=== PATIENT | male | born 1940 | race Caucasian/White ===

== ENCOUNTER → 2017-10-18 | Outpatient (CLI) | payer OTHER ==
[~2017-10-18] MED LIST: ALBUTEROL0.09 MG/A1 INH; ANTIVERT/2525 MG PO; BUPROPION HCL150 MG PO; DAYPRO600 M1 PO; DELTASONE5 MG; FLOMAX0.4 MG PO; LOPRESSOR25 MG PO; LORATADINE10 MG PO; MECLIZINE HCL25 M2 PO; PRAVACHOL10 MG PO; PRAVACHOL80 MG PO; SINGULAIR10 MG; SINGULAIR10 MG PO; TAMSULOSIN HYD0.4 MG PO; TESTOSTERONE IM; VICODIN 5/500 505 MG PO; VICODIN 500 MG-1 TAB PO; VITAMIN D50000 I3 PO; WELLBUTRIN XL150 MG PO; ZITHROMAX250 MG PO
== END | disposition home or self-care (01) ==
LOC: MRI 07:44
DX: M48.061 Spinal stenosis, lumbar region without neurogenic claudication (principal); M51.26 Other intervertebral disc displacement, lumbar region

== ENCOUNTER → 2019-01-21 | Outpatient (CLI) | payer OTHER ==
[~2019-01-21] MED LIST changes: +BUPROPION XL300 MG PO; +DONEPEZIL HYDROC5 M1 PO; +TESTOSTERO200 MG/1 M IM; +TRAZODONE50 MG PO
== END | disposition home or self-care (01) ==
LOC: RAD 09:28
DX: M19.011 Primary osteoarthritis, right shoulder (principal)

== ENCOUNTER 2019-06-29 16:33 | Inpatient (IN) | payer OTHER ==
[~2019-06-29] VITALS: Ht 185.4 cm; Wt 92.5 kg
[2019-06-29 16:42] VITALS: BP 172/76
[2019-06-29 17:31] LABS: BASO % 0.6 % (0.0-1.0); EOS # 0.3 10*3/uL (0.0-0.4); EOS % 3.8 % (1.0-4.0); HEMATOCRIT 45.3 % (42.0-52.0); HEMOGLOBIN 14.1 g/dl (14.0-18.0); LYMPH # 0.8 10*3/uL (1.3-4.4); LYMPH % 11.5 % (27.0-41.0); MEAN CELL VOLUME 93.4 fl (80.0-94.0); MEAN CORPUSCULAR HGB 29.1 pg (27.0-31.0); MEAN CORPUSCULAR HGB CONC 31.1 g/dl (33.0-37.0); MEAN PLATELET VOLUME 9.1 fl (9.6-12.3); MONO # 0.5 10*3/uL (0.1-1.0); MONO % 7.2 % (3.0-9.0); NEUT # 5.2 10*3/uL (2.3-7.9); NEUT % 76.5 % (47.0-73.0); PLATELET COUNT AUTOMATED 163 10*3/uL (130-400); RED BLOOD COUNT 4.85 10*6/uL (4.50-5.90); RED CELL DISTRI WIDTH 12.9 % (0-14.5); WHITE BLOOD COUNT 6.8 10*3/uL (4.8-10.8)
[2019-06-29 17:42] LABS: ACT PARTIAL THROMBO TIME 28.6 SECONDS (20.0-32.1)
[2019-06-29 17:47] LABS: ALBUMIN 3.2 gm/dl (3.1-4.5); ALKALINE PHOSPHATASE 81 U/L (45-117); BUN 16 mg/dl (7-24); CHLORIDE 100 mmol/L (98-107); CREATININE 1.49 mg/dL (0.70-1.30); POTASSIUM 4.4 mmol/L (3.5-5.1); SGOT/AST 12 IU/L (3-35); SGPT/ALT 19 U/L (12-78); SODIUM 137 mmol/L (136-145); TOTAL PROTEIN 8.1 gm/dL (6.4-8.2)
[2019-06-29 17:48] LABS: TROPONIN I < 0.015 ng/ml (<0.045)
[2019-06-29 18:00] VITALS: BP 170/74
[2019-06-29 19:20] VITALS: BP 164/78
[2019-06-29 20:38] VITALS: BP 172/76
[2019-06-29 21:27] LABS: BILIRUBIN NEGATIVE (NEGATIVE); CLARITY CLOUDY (CLEAR); COLOR RED (YELLOW); GLUCOSE NEGATIVE (NEGATIVE); KETONE NEGATIVE (NEGATIVE)
[2019-06-29 21:28] LABS: BLOOD 3+ (NEGATIVE); LEUKO ESTERASE TRACE (NEGATIVE); NITRITE NEGATIVE (NEGATIVE); SPECIFIC GRAVITY 1.015 (1.005-1.030); UROBILINOGEN 0.2 E.U./dl (0.2-1.0)
[2019-06-29 21:38] LABS: BACTERIA 2+; RBC TNTC rbc/hpf (0-2)
[2019-06-29 22:40] VITALS: BP 168/72
--- NOTE | 2019-06-29 22:40 | NUR ---
A 78, admitted to 5E, under the services of PRATIMA Sherwood DO with a diagnosis of UTI ALTERED MENTAL STATUS. Chief complaint is WEAKNESS. Patient arrived via stretcher from ER. Monitor applied. Initial assessment completed. Vital signs taken and recorded. RESIDENTS notified of admission to the unit. Orders received. See assessment for past medical history, medications and allergies. Patient and/or family oriented to unit. [address] visitation policy reviewed. Clothing/patient valuable form completed. TYESHA MELLO
--- NOTE | 2019-06-29 22:47 | NUR ---
TYLENOL GIVEN FOR TEMPERATURE OF 102.2 F ORAL. WILL ASSESS EFFECTIVENESS.
--- NOTE | 2019-06-29 23:14 | NUR ---
DR NG NOTIFIED OF PATIENT TEMPERATURE. HE GAVE ORDERS FOR 2 NSS FLUID BOLUS'S. FIRST BAG CURRENTLY RUNNING.
--- NOTE | 2019-06-29 23:16 | NUR ---
PATIENT UNABLE TO STATE HOME MEDICATIONS. PATIENT ALSO DOES NOT HAVE A LIST.
--- NOTE | 2019-06-29 23:19 | NUR ---
PATIENT DOES NOT REMEMBER VACCINE HISTORY.
--- NOTE | 2019-06-30 00:12 | NUR ---
NOTIFIED DR GN THAT PATIENT'S TEMPERATURE IS NOW 100.5 F ORAL. ALSO NOTIFIED HIM THAT THE PATIENT IS UNABLE TO VERIFY HOME MEDICATIONS AND NOTHING RECENT IS LISTED IN MEDICATION CLAIM HISTORY. DR NG REQUESTED THAT I CALL THE PATIENT'S TO GET LIST OF MEDICATIONS. DR NG STATED THAT IF THE DID NOT ANSWER BECAUSE IT IS AFTER MIDNIGHT TO MAKE SURE WE GET AHOLD OF PATIENT'S TOMORROW MORNING TO GET LIST OF HOME MEDICATIONS. WILL CALL PATIENT'S .
--- NOTE | 2019-06-30 00:40 | NUR ---
NOT ABLE TO CONTACT PATIENT'S AT THIS TIME. WILL LET [facility] KNOW THAT THE NEEDS CONTACTED FOR HOME MEDICATIONS PER DR NG.
[2019-06-30 01:56] VITALS: BP 130/54
--- NOTE | 2019-06-30 01:57 | NUR ---
BOLUS PER SEPSIS PROTOCOL FINISHED. DOCUMENTED IN SEPSIS REASSESSMENT CHARTING. VITAL SIGNS TAKEN AND RECORDED. TEMPERATURE COMING DOWN NOW 99.1 F ORAL. PATIENT UP AND TALKING. CALL LIGHT WITHIN REACH. WILL CONTINUE TO MONITOR.
[2019-06-30 06:48] LABS: ALBUMIN 2.5 gm/dl (3.1-4.5); BUN 15 mg/dl (7-24); CHLORIDE 107 mmol/L (98-107); CHOLESTEROL 111 mg/dL (<200); CREATININE 1.26 mg/dL (0.70-1.30); PHOSPHOROUS 3.5 mg/dL (2.5-4.9); POTASSIUM 4.1 mmol/L (3.5-5.1); SGOT/AST 13 IU/L (3-35); SGPT/ALT 14 U/L (12-78); SODIUM 140 mmol/L (136-145); TOTAL PROTEIN 6.5 gm/dL (6.4-8.2); TRIGLYCERIDES 90 mg/dl (<150); VLDL CHOLESTEROL 18 mg/dL (6-40)
[2019-06-30 06:54] LABS: ALKALINE PHOSPHATASE 65 U/L (45-117); FREE T4 0.99 ng/dl (0.76-1.46); HDL CHOLESTEROL 40 mg/dl (40-60); LDL CHOLESTEROL 53 mg/dL (9-159); THYROID STIM HORMONE (HS) 0.575 uIU/ml (0.358-4.75)
[2019-06-30 07:39] LABS: BASO % 0.4 % (0.0-1.0); EOS # 0.1 10*3/uL (0.0-0.4); EOS % 2.7 % (1.0-4.0); HEMATOCRIT 42.5 % (42.0-52.0); HEMOGLOBIN 13.6 g/dl (14.0-18.0); LYMPH # 0.8 10*3/uL (1.3-4.4); LYMPH % 17.3 % (27.0-41.0); MEAN CELL VOLUME 93.8 fl (80.0-94.0); MEAN PLATELET VOLUME 10.1 fl (9.6-12.3); MONO # 0.6 10*3/uL (0.1-1.0); MONO % 13.3 % (3.0-9.0); NEUT # 3.1 10*3/uL (2.3-7.9); NEUT % 66.1 % (47.0-73.0); PLATELET COUNT AUTOMATED 128 10*3/uL (130-400); RED BLOOD COUNT 4.53 10*6/uL (4.50-5.90); RED CELL DISTRI WIDTH 13.2 % (0-14.5); WHITE BLOOD COUNT 4.7 10*3/uL (4.8-10.8)
[2019-06-30 08:00] VITALS: BP 153/57
--- NOTE | 2019-06-30 10:30 | NUR ---
Van Driver Helper in to talk to patient. Patient states lives at home with his . There are 18 steps in the home. There is a stair lift. Physician: [facility] Pharmacy: [facility]: [facility] is working on getting him home health services but it is currently on hold due to his hospital admission, would like [facility] on discharge Patient's level of ADLs: minimal assistance Patient has working utilities: yes DME: walker, cane, rollator Follow-up physician's appointment after d/c: will be made by the hospitalist nurse director upon discharge Does patient want to access PORTAL?: no Discharge plan discussed with patient and his who is at his bedside. He lives at home with his . He needs minimal assistance with his ADLs and ambulates with either a walker, cane, or rollator. states MA is working on getting a patient a hospital bed and fix the stair lift but that could take 3-4 weeks. would like to see how he does with therapy to see discharge planning needs. Discussed short term SNF and they are agreeable. When provided with a list of facilities they chose [facility]. Discussed home health care services and MA is currently working on setting up home health care services but it is currently on hold due to his admission to the hospital. Discussed home health care services and they are agreeable. When provided with a list of agencies they chose [facility]. If patient was to be discharged to home the would provide transportation and the grandson would help get the patient into their home. DOUGLAS WHITT
--- NOTE | 2019-06-30 11:25 | NUR ---
PATIENT GIVEN TYLENOL FOR ELVATED TEMP. PATIENT DENIES ANY CHILLS OR DISCOMFORT WILL CONTINUE TO MONITOR AND REASSESS. CALL LIGHT WITHIN REACH.
--- NOTE | 2019-06-30 11:50 | NUR ---
[phone].
[2019-06-30 12:00] VITALS: BP 103/53
[2019-06-30 14:00] VITALS: BP 103/53
--- NOTE | 2019-06-30 14:40 | NUR ---
Occupational therapy orders received and OT evaluation completed in full on floor five. Patient precautions include fall risk, ww use, R UE IV line, weakness, heart monitor, and bed/chair alarm. Per OT eval, OT recommends patient d/c to a SNF. If refused, home with HH SN, OT, and PT. Patient would benefit from continued OT treatment to maximize safety and independence with ADLs, mobility, and [place]. [place], [address]. Thank you for the referral. Kaykay Smith, OTR/L
--- NOTE | 2019-06-30 14:45 | NUR ---
PATIENT TAKEN DOWN TO 406-1 VIA WHEELCHAIR. REPORT GIVEN TO DONNIE DOOLEY.
--- NOTE | 2019-06-30 14:55 | NUR ---
PT TO THE 4TH FLOOR AT THIS TIME. RECEIVED REPORT FROM NURSE PALLAVI RN.
--- NOTE | 2019-06-30 15:05 | NUR ---
PT RESTING IN CHAIR. ASSESSMENT COMPLETE. RESPIRATIONS EASY AND REGULAR. PT STATES HE IS CONSTANTLY IN PAIN. NO OTHER COMPLAINTS. DENIES THE NEED FOR ANYTHING AT THIS TIME. CALL LIGHT WITHIN REACH. WILL CONTINUE TO MONITOR.
[2019-06-30 16:00] VITALS: BP 119/63
--- NOTE | 2019-06-30 16:21 | NUR ---
PER NURSE PALLAVI RN WAS IN AND WAS SUPPOSED TO BRING BACK A MED LIST AND NEVER DID. I TRIED TO CONTACT THE FOR A MED LIST AND GOT NO ANSWER. WILL TRY AGAIN.
--- NOTE | 2019-06-30 17:03 | NUR ---
PT STATES TO TRY [facility] FOR A MED LIST. [facility] STATES HE HASN'T GOT ANYTHING FILLED THERE SINCE 2014. I ASKED HIM IF [facility] USES THE [facility] AND HE SAYS "YES I THINK SO" [facility]READ[facility] CL[facility]ED AT THIS TIME.
--- NOTE | 2019-06-30 17:57 | NUR ---
BROUGHT MED LIST IN. AT BEDSIDE. PT RESTING. RESPIRATIONS EASY AND REGULAR. NO COMPLAINTS. WILL MONITOR
[2019-06-30] MEDS ORDERED: DONEPEZIL HCL10 MG PO (18:31)
[2019-06-30] MEDS ORDERED: TRAZODONE100 MG PO (18:34)
[2019-06-30] MEDS ORDERED: ALLERGY EYE DRO10 M1 OP (18:37)
[2019-06-30] MEDS ORDERED: VITAMIN D350 MC1 PO (18:40)
--- NOTE | 2019-06-30 18:45 | NUR ---
NOTIFIED PTS MED REC IS UP TO DATE.
--- NOTE | 2019-06-30 19:00 | NUR ---
ASSUMED CARE OF PT. ASSESSMENT COMPLETED. PT REQUESTED MOVE FROM BED TO CHAIR, PT POSITIONED ON BACK. NO COMPLAINTS OF PAIN/DISCOMFORT AT THIS TIME. VS WITHIN NORMAL LIMITS.
[2019-06-30 20:00] VITALS: BP 111/86
--- NOTE | 2019-06-30 22:00 | NUR ---
NORCO FOR PAIN 3/10 IN RIGHT SHOULDER EFFECTIVE. PT RESTING QUIETLY.
[2019-07-01] VITALS: BP 123/47
--- NOTE | 2019-07-01 | NUR ---
PT HAD A TEMPERATURE OF 101.2. PT WAS GIVEN TYLENOL 650MG
--- NOTE | 2019-07-01 03:28 | NUR ---
RETAKE OF TEMP. 98.8. TYLENOL EFFECTIVE
[2019-07-01 08:00] VITALS: BP 123/52
--- NOTE | 2019-07-01 13:48 | NUR ---
OT Daily Note Patient was seen this date for 20 minutes of 1:1 OT. Pt identified by name and date. Pt reports pain 9/10 in his back. Pt was seated in bed side chair with his present. ESCOBAR educated patient on use of sock aid secondary to patient being max assist to don socks. Pt provided visual demonstration for technique. Pt required Min A using sock aid to don R sock and verbal cues to don L. Patient performed STS from chair with arms at [facility] for balance. Transfer from bed side chair to w/c at Mod CHEMISTRY QUALITY CONTROL ANALYST for balance with max verbal cues for body positioning when turning to desend to seated surface. Verbal cues for hand placement on w/c for safety. Pt requires max vc during tasks for technique. Nursing arrived at this time to take patient to testing. Total treatment time: 20 minutes
[2019-07-01 16:00] VITALS: BP 146/59
--- NOTE | 2019-07-01 19:00 | NUR ---
REPORT RECEIVED FROM VIOLETTA DOOLEY. PT SITTING IN CHAIR AT THIS TIME. NO COMPLAINTS VOICED, CALL LIGHT IN REACH.
[2019-07-01 20:00] VITALS: BP 150/74
--- NOTE | 2019-07-01 21:00 | NUR ---
TYLENOL GIVEN PER ORDER FOR TEMP 100.8. WILL MONITOR EFFECTIVENESS.
--- NOTE | 2019-07-01 23:45 | NUR ---
TYLENOL INEFFECTIVE. PT [id number]. WILL CALL FOR ORDERS,
[2019-07-02] VITALS: BP 127/55
--- NOTE | 2019-07-02 01:34 | NUR ---
MOTRIN AND TYLENOL GIVEN PER DR. NG FOR TEMP OF 100.9 WILL MONITOR EFFECTIVENESS.
--- NOTE | 2019-07-02 03:00 | NUR ---
TYLENOL EFFECTIVE FOR TEMPERATURE. PT TEMP NOW 98.6 ORALLY. NO COMPLAINTS VOICED AT THIS TIME. CALL LIGHT IN REACH
[2019-07-02 06:57] LABS: BASO % 0.6 % (0.0-1.0); EOS # 0.1 10*3/uL (0.0-0.4); EOS % 1.6 % (1.0-4.0); HEMATOCRIT 37.3 % (42.0-52.0); LYMPH # 0.8 10*3/uL (1.3-4.4); LYMPH % 25.5 % (27.0-41.0); MEAN CELL VOLUME 92.1 fl (80.0-94.0); MEAN CORPUSCULAR HGB 29.6 pg (27.0-31.0); MEAN CORPUSCULAR HGB CONC 32.2 g/dl (33.0-37.0); MEAN PLATELET VOLUME 9.6 fl (9.6-12.3); MONO # 0.3 10*3/uL (0.1-1.0); MONO % 8.9 % (3.0-9.0); NEUT % 63.1 % (47.0-73.0); PLATELET COUNT AUTOMATED 108 10*3/uL (130-400); RED BLOOD COUNT 4.05 10*6/uL (4.50-5.90); WHITE BLOOD COUNT 3.1 10*3/uL (4.8-10.8)
[2019-07-02 08:00] VITALS: BP 131/52
--- NOTE | 2019-07-02 09:00 | NUR ---
Document Control Associate in to see patient. No new needs or request at this time. When medically stable, accepted, and precert is received he will be discharged to [facility]. service planner following.
--- NOTE | 2019-07-02 09:49 | NUR ---
OT NOTE PATIENT COMPLETED 25 MINUTUES OT THIS DATE. PATIENT IDENTIFIED BY NAME AND DATE OF . COMPLETED SIT TO STAND FROM BED CGA. COMPLETEED FUNCTIONAL AMBULATION USE FWW TO BATHROOM CGA COMPLETING STAND TO SIT TOILET CGA MIN VERBAL CUES SAFETY PROPER HAND PLACEMENT GRAB BAR. PATIENT COMPLETED UB DRESSING GOWN MIN A. COMPLETED LB DRESSING USE AE MIN A. COMPLETED SIT TO STAND FROM TOILET USE GRAB BAR MIN A COMPLETING FUNCTIONAL AMBULATION USE FWW TO BED CGA. PATIENT COMPLETED SIT TO SUPINE BED CGA. PATIENT IN BED WITH CALL LIGHT WITHIN REACH AND BAD ALARM IN TACT. PATIENT FAMILY MEMBER PRESENT. ARUN MANNING
[2019-07-02 12:00] VITALS: BP 137/64
--- NOTE | 2019-07-02 13:03 | NUR ---
PHYSICAL THERAPY Carla completed full report to follow moderate level of complexity 38862 recomend SNF at discharge. PT to work on tranfers,balance,strength and ambulation Beverly Barboza PT
--- NOTE | 2019-07-02 13:37 | NUR ---
Orders received from Dr. Vasquez for SNF Placement. Pt. requests [facility]. Referral Faxed to [facility] Attn: Le. Pt. will require [facility] Precert Prior to discharge when Medically Stable.
[2019-07-02 16:00] VITALS: BP 149/62
--- NOTE | 2019-07-02 17:45 | NUR ---
Spoke with regarding patients temperature, stat blood cultures not drawn because hospital does not have internet service and urine not collected as of yet due to incontinence. Called ER for an urine collection bag, applied, awaiting sample.
--- NOTE | 2019-07-02 17:52 | NUR ---
Left a message with answering service regarding consult for UTI, continue fevers.
--- NOTE | 2019-07-02 19:11 | NUR ---
returned call regarding consult. Patients history, meds and tests were reviewed. See new orders. Physician also stated if patient spikes another temperature to order blood cultures x2.
[2019-07-02 20:00] VITALS: BP 139/51
--- NOTE | 2019-07-02 20:00 | NUR ---
TYMPANIC TEMP OF 99.4 TAKEN AT THIS TIME. PATIENT STATES HE DOESN'T FEEL HAS "HOT" BEFORE.
[2019-07-02 20:48] LABS: BILIRUBIN NEGATIVE (NEGATIVE); BLOOD 1+ (NEGATIVE); CLARITY CLEAR (CLEAR); COLOR YELLOW (YELLOW); GLUCOSE NEGATIVE (NEGATIVE); KETONE NEGATIVE (NEGATIVE); LEUKO ESTERASE NEGATIVE (NEGATIVE); NITRITE NEGATIVE (NEGATIVE); SPECIFIC GRAVITY 1.015 (1.005-1.030); UROBILINOGEN 0.2 E.U./dl (0.2-1.0)
[2019-07-02 20:50] LABS: BACTERIA TRACE
[2019-07-03] VITALS: BP 115/94
--- NOTE | 2019-07-03 03:46 | NUR ---
24 HR chart check completed.
[2019-07-03 06:19] LABS: BASO % 0.3 % (0.0-1.0); EOS # 0.1 10*3/uL (0.0-0.4); EOS % 1.7 % (1.0-4.0); HEMATOCRIT 36.8 % (42.0-52.0); HEMOGLOBIN 11.7 g/dl (14.0-18.0); MEAN CELL VOLUME 92.7 fl (80.0-94.0); MEAN CORPUSCULAR HGB 29.5 pg (27.0-31.0); MEAN CORPUSCULAR HGB CONC 31.8 g/dl (33.0-37.0); MEAN PLATELET VOLUME 9.7 fl (9.6-12.3); MONO # 0.3 10*3/uL (0.1-1.0); NEUT # 2.2 10*3/uL (2.3-7.9); NEUT % 61.7 % (47.0-73.0); PLATELET COUNT AUTOMATED 115 10*3/uL (130-400); RED BLOOD COUNT 3.97 10*6/uL (4.50-5.90); RED CELL DISTRI WIDTH 13.1 % (0-14.5); WHITE BLOOD COUNT 3.5 10*3/uL (4.8-10.8)
[2019-07-03 06:24] LABS: CREATININE 1.4 mg/dL (0.70-1.30)
--- NOTE | 2019-07-03 06:41 | NUR ---
MADE AWARE THAT PATIENT IS REQUESTING TUMS AT THIS TIME. DR STATED HE WILL ORDER SOMETHING.
[2019-07-03 08:00] VITALS: BP 144/72
--- NOTE | 2019-07-03 08:30 | NUR ---
Route Rider in to see patient. No new needs or request at this time. When medically stable and precert is received he will be discharged to [facility]. financial planner following.
--- NOTE | 2019-07-03 08:36 | NUR ---
Iv rate reduced to 80 cc/hr per order.
--- NOTE | 2019-07-03 09:55 | NUR ---
OT NOTE PATIENT SEEN OT THIS DATE 23 MINUTES. PATIENT IN BED UPON ARRIVAL. PATIENT COMPLETED SUPINE TO SIT EOB AND REORTS FATIGUE WITH MODERATE REST BREAKS REQUIRED. COMPLETED UB DRESSING MIN A GOWN AND LB DRESSING DOFF/ROBERT DEPENDS MOD A WITH INCONTINENCE BLADDER. OBSERVED DRIED DARK BLOOD IN PATIENT'S DEPENDS WITH NURSING NOTIFIED. PATIENT COMPLETED STAND PIVOT TRANSFER CGA TO RECLINER. PATIENT COMPLETED DYNAMIC STAND BALANCE USE FWW SUPPORT APPROX STAND TOLERANCE 1-2 MINUTES WITH MAX FATIGUE AND NEED SEATED REST BREAK FOR INCREASE STAND TOLERANCE DURING ADL TASKS. PATIENT SEATED IN RECLINER END OF SESSION WITH CALL LIGHT AND CHAIR ALARM INTACT. CONTINUE TOWARDS PLAN OF CARE. ARUN ESCOBAR/Beth
--- NOTE | 2019-07-03 10:09 | NUR ---
PHYSICAL THERAPY Patient seen this am 1:1 for therapy visit and was resting supine in bed upon therapist arrival. Patient identified by name / and reports feeling increased generalized, global weakness. Paient transfers supine to sit EOB with MOD A x 1 and needed a minute or so to collect himself. Patient performed sit to stand transfer MIN A and ambulated with use of wh walker, CGA/MIN, 30'x 1, demonstrating very slow, cautious gait pattern with decreased stride. Patient c/o of feeling a bit light headed and returned to bedside chair with mild fatigue. Patient stated he felt better after a brief seated rest with no dizziness and remained in bedside chair with call light, tray table, telephone and body alarm for safety. Will continue per POC as tolerated, total treatment time 16 minutes. Venkat Sherman, CREDIT UNION MANAGER
--- NOTE | 2019-07-03 11:06 | NUR ---
Patient updated clinicals faxed to [facility] for precert, waiting for auth.
[2019-07-03 12:00] VITALS: BP 153/60
--- NOTE | 2019-07-03 12:32 | NUR ---
Updated clinicals and med list faxed to [facility] due to new IV ATB change, waiting on review and precert
--- NOTE | 2019-07-03 13:51 | NUR ---
Patient is being accepted to [facility] and precert has been started. waiting on auth.
[2019-07-03 16:00] VITALS: BP 143/64
--- NOTE | 2019-07-03 16:32 | NUR ---
OCCUPATIONAL THERAPY CO-SIGN I approve of the Occupational Therapy notes written above. ELMA FONG OTR/Beth
--- NOTE | 2019-07-03 16:33 | NUR ---
PHYSICAL THERAPY CO-SIGN I approve of the Physical Therapy notes written above. Beverly Barboza PT
--- NOTE | 2019-07-03 17:19 | NUR ---
Le sr. social media & mobile manager from [facility] called and states she received authorization for pt from insurance. States ok to come there at dc. States if he is DC over the weekend he is good to come.
[2019-07-03 20:00] VITALS: BP 144/65
--- NOTE | 2019-07-03 21:29 | NUR ---
MADE AWARE THAT PATIENT TAKES 0.8MG OF FLOMAX AT NIGHT AND WAS ORIGINALLY CONTINUED BUT LOOKS LIKE IT WAS NOT PROCESSED CORRECTLY WHEN CONTINUED OVER AND ONLY 0.4MG WAS ORDER. STATED TO KEEP ORDER THE WAY IT IS FOR NOW WHILE PATIENT HAS IVF RUNNING
--- NOTE | 2019-07-03 21:48 | NUR ---
MADE AWARE THAT PATIENT HAS BEEN HAVING INDIGESTION FOR A COUPLE DAYS AND REQUESTING ANTIACID. SATED OK TO PLACE X1 ORDER OF TUMS AT THIS TIME.
--- NOTE | 2019-07-03 23:23 | NUR ---
PATIENT MEDICATED WITH TYLENOL AND MOTRIN FOR TEMP 100.7. WILL CONTINUE TO MONITOR
[2019-07-04] VITALS: BP 153/68
--- NOTE | 2019-07-04 04:00 | NUR ---
TYLENOL AND MOTRIN EFFECTIVE. PATIENTS TEMP SS NOW 97.7 TYMPANIC
--- NOTE | 2019-07-04 04:41 | NUR ---
MADE AWARE THAT PATIENTS URINE HAS BEEN BASSAM IN COLOR BUT AT THIS TIME, PATIENT PRODUCE BLOOD CLOT ABOUT 8CM IN LENGTH AND LOOKED WORM LIKE, NOTED THAT ER ATTEMPED TO STRAIGHT CATH PATIENT UNSUCCESSFULLY. PATIENT HOWEVER HAS NO COMPLAINTS OF PAIN AND IS VOIDING FINE. STATED OK, JUST TO MONITOR IF IT GETS WORSE.
--- NOTE | 2019-07-04 05:02 | NUR ---
24 HR chart check completed.
[2019-07-04 07:22] LABS: HEMATOCRIT 36.4 % (42.0-52.0); HEMOGLOBIN 11.5 g/dl (14.0-18.0); MEAN CELL VOLUME 93.3 fl (80.0-94.0); MEAN CORPUSCULAR HGB 29.5 pg (27.0-31.0); MEAN CORPUSCULAR HGB CONC 31.6 g/dl (33.0-37.0); MEAN PLATELET VOLUME 9.5 fl (9.6-12.3); PLATELET COUNT AUTOMATED 119 10*3/uL (130-400); RED CELL DISTRI WIDTH 13.2 % (0-14.5); WHITE BLOOD COUNT 4.3 10*3/uL (4.8-10.8)
[2019-07-04 08:00] VITALS: BP 150/61
[2019-07-04 08:20] LABS: PLATELET SUFFICIENCY LOW (NORMAL); TOTAL CELLS COUNTED 100 #CELLS
[2019-07-04 12:00] VITALS: BP 154/70
[2019-07-04 16:00] VITALS: BP 169/89
--- NOTE | 2019-07-04 18:19 | NUR ---
DR. ENDY HUGHES.
--- NOTE | 2019-07-04 18:23 | NUR ---
DR. SCHUMACHER AWARE OF CXR RESULTS, NO CHANGE.
[2019-07-04 20:00] VITALS: BP 148/66
--- NOTE | 2019-07-04 21:31 | NUR ---
PATIENT MEDICATED WITH MOTRIN FOR LOW GRADE TEMP OF 100.4. PATIENT ALSO MEDICATED WITH RESTORIL AND TESSALON FOR INSOMNIA AND COUGH. WILL MONITOR
--- NOTE | 2019-07-04 22:13 | NUR ---
RESTORIL AND TESSALON PERLE EFFECTIVE.
--- NOTE | 2019-07-04 23:28 | NUR ---
MADE AWARE THAT PATIENT'S SPO2 WAS IN THE 80'S ON RA, HAS BEEN ON LOWER 90'S TODAY. PLACED ON 2L NC AND SATING AT 97%. STATED OK.
[2019-07-05] VITALS (7 sets, daily range): BP systolic 124–177; BP diastolic 54–80
--- NOTE | 2019-07-05 | NUR ---
TYLENOL EFFECTIVE. TEMP AT 99.0
[2019-07-05 07:32] LABS: HEMATOCRIT 36.4 % (42.0-52.0); HEMOGLOBIN 11.6 g/dl (14.0-18.0); MEAN CELL VOLUME 93.6 fl (80.0-94.0); MEAN CORPUSCULAR HGB 29.8 pg (27.0-31.0); MEAN CORPUSCULAR HGB CONC 31.9 g/dl (33.0-37.0); MEAN PLATELET VOLUME 9.5 fl (9.6-12.3); PLATELET COUNT AUTOMATED 148 10*3/uL (130-400); RED BLOOD COUNT 3.89 10*6/uL (4.50-5.90); RED CELL DISTRI WIDTH 13.3 % (0-14.5); WHITE BLOOD COUNT 5.9 10*3/uL (4.8-10.8)
[2019-07-05 07:50] LABS: BUN 16 mg/dl (7-24); CHLORIDE 108 mmol/L (98-107); SODIUM 144 mmol/L (136-145)
[2019-07-05 08:05] LABS: PLATELET SUFFICIENCY NORMAL (NORMAL); TOTAL CELLS COUNTED 100 #CELLS
--- NOTE | 2019-07-05 10:43 | NUR ---
NOOTIFIED OF BP 164/70 MANUAL AFTER GIVING SCHEDULED LOPRESSOR. SAID SHE WOULD LOOK AT HIS CHART.
--- NOTE | 2019-07-05 14:48 | NUR ---
TRANSFERRED TO [facility] WITHOUT INCIDENT. REPORT GIVEN TO SOUMYA FLYNN.
--- NOTE | 2019-07-05 19:59 | NUR ---
PATIENT MEDICATED WITH HYCODAN SYRUP FOR HARSH COUGH. SAID HE WOULD FEEL SO MUCH BETTER IF HE COULD JUST QUIT COUGHING. RESPIRATIONS REGULAR AND NON-LABORED ON O2 AT 2L N/C. NO SIGNS OR SYMPTOMS OF DISTRESS NOTED AT THIS TIME. BED ALARM ON. WILL CONTINUE TO MONITOR. CALL LIGHT IN REACH.
[2019-07-06] VITALS: BP 151/72
[2019-07-06 06:20] LABS: HEMATOCRIT 36.3 % (42.0-52.0); HEMOGLOBIN 11.5 g/dl (14.0-18.0); MEAN CELL VOLUME 91.9 fl (80.0-94.0); MEAN CORPUSCULAR HGB 29.1 pg (27.0-31.0); MEAN CORPUSCULAR HGB CONC 31.7 g/dl (33.0-37.0); MEAN PLATELET VOLUME 9.4 fl (9.6-12.3); PLATELET COUNT AUTOMATED 173 10*3/uL (130-400); RED BLOOD COUNT 3.95 10*6/uL (4.50-5.90); RED CELL DISTRI WIDTH 13.1 % (0-14.5); WHITE BLOOD COUNT 6.5 10*3/uL (4.8-10.8)
[2019-07-06 06:33] LABS: BUN 17 mg/dl (7-24); CHLORIDE 104 mmol/L (98-107); CREATININE 1.15 mg/dL (0.70-1.30); POTASSIUM 3.9 mmol/L (3.5-5.1); SODIUM 142 mmol/L (136-145)
[2019-07-06 06:50] LABS: ATYPICAL LYMPHS 3 % (0-0); PLATELET SUFFICIENCY NORMAL (NORMAL); TOTAL CELLS COUNTED 100 #CELLS
[2019-07-06 08:00] VITALS: BP 162/71
--- NOTE | 2019-07-06 09:00 | NUR ---
PATIENT AWAKE, ALERT, & ORIENTEDX3. DENIES ANY NEEDS AT THIS TIME. VISITING IN ROOM WITH . CALL LIGHT WITHIN REACH.
--- NOTE | 2019-07-06 09:00 | NUR ---
Compressor Station Engineer in to see patient. No new needs or request at this time. When medically stable and precert is received he will be discharged to [facility]. meeting planner following.
--- NOTE | 2019-07-06 10:19 | NUR ---
Patients auth is no longer valid. Will need PT/OT notes and new precert for [place].
[2019-07-06 12:00] VITALS: BP 161/62
--- NOTE | 2019-07-06 13:45 | NUR ---
OT NOTE Pt was seen this A.M. 1:1 for 15 minute OT session. Upon arrival pt was supine in bed. Pt identified by name and and had complaints of genralized weakness, fatigue, sweating, and caughing. Pt presented to therapy with continuous 2L-O2 via NC which he remained on throughout the entire session. Pt transferred supine to sit EOB with Vikas and use of bed rail for UE support. Upon inital rise pt had complaints of being dizzy. Pt completed multiple sit to stand transfers from bed level with Vikas and use of w/w for UE support. Challenged pt's static standing tolerance needed for increased I in self care tasks and functional transfers. Pt was able to tolerate aprox 30-45 seconds before sitting due to fatigue. Attempted to complete other tasks and pt reported "I am too weak and tired today, I just feel terrible. I can't do anything else." Pt transferred back into bed sit to supine with SBA. There he was left with call light in hand, tray table in place, and bed alarm activated for safety. Continue with rec D/C plan to SNF. SHAWN Kolb/Beth
--- NOTE | 2019-07-06 14:20 | NUR ---
PHYSICAL THERAPY Patient presented to therapy in supine with no spO2 on him at the time. O2 HOSE is connected to the wall outlet with 2 liters of spO2 VIA NASAL CANULA. Patient gives informed consent for treatment. Patient was identified by name and on wristband. Patient head of bed was slightly elevated and bed alarm was NOT on. Patient is in isolation. Patient performed supine to sitting at EOB transfer with SBA. Patient sat on EOB with SBA and complaint of dizziness. Patient's O2 sat taken and recorded as 94% and pulse at 67. Nasal canula put on patient. Patient sit to stand from EOB with MIN A X 1. Patient stood x 3 seperate standing tolerances CGA X 1 < 30 seconds each time and then had to sit on EOB. Patient declined gait because he didn't feel well enough. Patient performed transfer back ot supine in bed with SBA. Patient left in supine in bed with head of bed elevated, call light within reach and bed alarm activated. Patient was 1:1 with this LANDSCAPE CREW LEADER for 17 minutes total. BRIAN GILMORE LANDSCAPE CREW LEADER
--- NOTE | 2019-07-06 15:10 | NUR ---
Patient updated clinicals and therapy notes faxed to [facility]. Will restart precert when patient is stable for discharge.
[2019-07-06 16:00] VITALS: BP 174/80
[2019-07-06 20:00] VITALS: BP 179/68
--- NOTE | 2019-07-06 20:00 | NUR ---
PT RESTING IN BED WITH EYES CLOSED, AWAKENS WITH EASE. A&O, PLEASANT AND COOPERATIVE. RESP NONLABORED. NO ACUTE DISTRESS NOTED. NO COMPLAINTS VOICED. JACQUELINE PATENT.
--- NOTE | 2019-07-06 21:05 | NUR ---
MEDICATED WITH DESYREL PER PRN ORDER FOR C/O INSOMNIA.
[2019-07-07] VITALS (7 sets, daily range): BP systolic 160–178; BP diastolic 64–86
--- NOTE | 2019-07-07 04:07 | NUR ---
PT ASLEEP IN BED. RESPIRATIONS EASY. NO S/S OF DISTRESS NOTED. WILL MONITOR. CALL LIGHT IN REACH.
[2019-07-07 06:47] LABS: BASO % 0.2 % (0.0-1.0); EOS # 0.1 10*3/uL (0.0-0.4); EOS % 1.8 % (1.0-4.0); HEMATOCRIT 35.4 % (42.0-52.0); HEMOGLOBIN 11.2 g/dl (14.0-18.0); LYMPH # 1.5 10*3/uL (1.3-4.4); LYMPH % 23.5 % (27.0-41.0); MEAN CELL VOLUME 91.9 fl (80.0-94.0); MEAN CORPUSCULAR HGB 29.1 pg (27.0-31.0); MEAN CORPUSCULAR HGB CONC 31.6 g/dl (33.0-37.0); MEAN PLATELET VOLUME 9.2 fl (9.6-12.3); MONO # 0.6 10*3/uL (0.1-1.0); MONO % 9.8 % (3.0-9.0); NEUT # 4.2 10*3/uL (2.3-7.9); NEUT % 64.4 % (47.0-73.0); PLATELET COUNT AUTOMATED 205 10*3/uL (130-400); RED BLOOD COUNT 3.85 10*6/uL (4.50-5.90); RED CELL DISTRI WIDTH 13.1 % (0-14.5); WHITE BLOOD COUNT 6.6 10*3/uL (4.8-10.8)
[2019-07-07 07:08] LABS: BUN 15 mg/dl (7-24); CHLORIDE 102 mmol/L (98-107); POTASSIUM 3.6 mmol/L (3.5-5.1); SODIUM 140 mmol/L (136-145)
[2019-07-07 07:10] LABS: CREATININE 1.05 mg/dL (0.70-1.30)
--- NOTE | 2019-07-07 09:00 | NUR ---
Medical Assistant Supervisor in to see patient. No new needs or request at this time. When medically stable and precert is received he will be discharged to [facility]. finished goods planner following.
--- NOTE | 2019-07-07 10:00 | NUR ---
PT DOES NOT WANT IV CHANGED, IV HAS BEEN IN FOR SEVERAL DAYS,SITE WNL AND IV FUNCTIONING PROPERLY. PT COMPLAIN OF BLOOD IN URINE, BLOOD ON GOWN DRIED FROM OVERNIGHT, PT STATES MAY HAVE SPILLED URINAL ON SELF BUT UNSURE. BLOOD NOTED IN URINE ON URINAL SITTING ON BEDSIDE STAND. PHYSICIAN AWARE OF BLOOD IN URINE.
--- NOTE | 2019-07-07 12:05 | NUR ---
NOTIFIED DR. RAZA THAT PATIENT AND REQUESTING TO SEE PHYSICIAN, THEY HAVE QUESTIONS RELATED TO BLOOD IN URINE.
--- NOTE | 2019-07-07 12:48 | NUR ---
Called to room to speak to of patient about VA paperwork. The VA paperwork is coverage for OP PT. is concerned about why patient is bleeding from his penis. She states a doctor was just in here but she would like to ask more questions. Hospitalist nurse director notified.
--- NOTE | 2019-07-07 13:15 | NUR ---
OT NOTE Pt was seen this P.M. 1:1 for 15 minute OT session. Upon arrival pt was supine in bed. Pt identified by name and and had complaints of generalized weakness and fatigue. Pt presented to therapy with continuous 2L-O2 via NC which he remained on throughout the entire session. Pt transferred supine to sit EOB with Vikas for assist with UB. Sit to stand completed from bed level with Vikas and use of w/w. Functional mobility was then completed into the bathroom with CGA and use of w/w with verbal prompts throughout to correct his posture. There pt transferred on/off shower chair with Vikas for assist with low surface and poor safety awareness with sitting too soon. Fuctional mobility was then completed back to the EOB and no other tasks completed at this time due to pt stating "I am too weak to do any more, I must lay down." Pt transferred back into bed sit to supine with SBA. There he was left with call light in hand, tray table in place, and bed alarm activated for safety. Continue with rec D/C plan to SNF. SHAWN Kolb/Beth
--- NOTE | 2019-07-07 14:13 | NUR ---
PHYSICAL THERAPY TREATMENT TIME: 12:55 PM - 1:15 PM 20 MINUTES Patient presented to therapy with head of bed elevated and visitng in room with patient. Patient gives informed consent for treatment. Patient was identified by name and on wristband. Patient is on 2 liters of spO2 VIA NASAL CANULA. Patient performed supine to sitting at EOB transfer with CGA due to weakness and fatigue. Patient performed stiting at EOB with SBA. Patient sit to stand from EOB with CGA X 1- MIN A X 1. Patient performed ambulation with Wh Walker and CGA X 1 for 20' x 1 and then again for 15' x 1 with verbal cues for upright posture, locking knees into extension, and pushing down on Walker. Patient was MIN A X 1 sit to stand out of low chair. Patient performed transfer into supine in bed with CGA and verbal cues for putting hands back on armrests of chair. Patient was left in supine in bed with head of bed elevated, call light within reach and bed alarm attached. Patient was 1:1 with this SENIOR IT ENGINEER for 20 minutes total. BRIAN GILMORE SENIOR IT ENGINEER
--- NOTE | 2019-07-07 14:20 | NUR ---
[facility] is stating they will not restart the precert until the get the results of the viral panel. They do not have any isolation rooms and cannot accept until they know results.
--- NOTE | 2019-07-07 14:40 | NUR ---
PER PATIENTS , IF PATIENT HAS TO BE TRANSPORTED BY AMBULANCE, THEY PREFER [facility]
[2019-07-07] MEDS ORDERED: DOXYCYCLINE100 M3 PO (18:53)
[2019-07-07] MEDS ORDERED: OMNICEF300 MG PO (18:53)
--- NOTE | 2019-07-07 19:16 | NUR ---
RN CALLED LAB TO QUESTION RESPIRATORY VIRUS PANEL SEND OUT MICRO RESULTS. THIS WAS SENT ON Jun AND STILL NO RESULTS. PER LAB, THESE CAN TAKE 3-5 DAYS FOR RESULTS. SECTION CREWS ACTIVITIES CLERK VERIFIED THAT SAMPLE WAS RECEIVED AND SENT OUT ORDERED.
--- NOTE | 2019-07-07 19:42 | NUR ---
PT AWAKE SITTING UP IN BED. RESPIRATIONS EASY. NO S/S OF DISTRESS NOTED. O2 IN USE VIA 2L NC. ICE CREAM PROVIDED PER REQUEST. NO OTHER NEEDS/COMPLAINTS VOICED AT THIS TIME. WILL MONITOR. CALL LIGHT IN REACH.
--- NOTE | 2019-07-07 21:59 | NUR ---
PATIENT'S COUGH UNRELIEVED BY HYCODAN OR TESSALON PERLES. PT PROVIDED WITH MULTIPLE BEVERAGES/POPSICLES/ICE PER REQUEST. NOTHING SEEMS TO BE HELPING. PT WORKS HIMSELF UP WITH COUGHING TO THE POINT WHERE HE IS ALMOST VOMITING. PO TRAZODONE ADMINISTERED PER REQUEST TO HELP HIM RELAX/TRY TO GET SOME SLEEP. IV ZOFRAN ALSO ADMINISTERED FOR C/O NAUSEA. NOTIFIED OF SITUATION. RN ABLE TO HEAR RHONCHI/WHEEZES, BUT VERY DIFFICULT TO AUSCULTATE LUNG SOUNDS DUE TO COUGH. NEW ORDER RECEIVED FOR 1X DOSE OF DUONEB BREATHING TREATMENT STAT. RESPIRATORY CALLED AND NOTIFIED OF NEW STAT ORDER. WILL BE UP SHORTLY. PHARMACY CALLED TO VERIFY MED DEVIKA. PT UPDATED ON PLAN OF CARE.
--- NOTE | 2019-07-07 22:26 | NUR ---
BREATHING TREATMENT IN PROGRESS. PATIENT ASKED IF HE FEELS IT IS HELPING. PT SHRUGS HIS SHOULDERS AND SAYS "I DON'T KNOW." PT STILL COUGHING, BUT DOES NOT APPEAR TO BE WORKED UP AT THIS TIME. WILL CONTINUE TO MONITOR.
--- NOTE | 2019-07-07 22:59 | NUR ---
PT ASLEEP IN BED. EARLIER MEDICATIONS APPEAR EFFECTIVE. WILL MONITOR. CALL LIGHT LEFT IN REACH.
[2019-07-08 02:08] LABS: ADENOVIRUS Negative (Negative); INFLUENZA A Negative (Negative); INFLUENZA B Negative (Negative); METAPNEUMOVIRUS Positive (Negative); PARAINFLUENZA 1 Negative (Negative); PARAINFLUENZA 2 Negative (Negative); PARAINFLUENZA 3 Negative (Negative); RHINOVIRUS Negative (Negative); RSV A Negative (Negative); RSV B Negative (Negative)
--- NOTE | 2019-07-08 05:40 | NUR ---
PT ASLEEP IN BED. O2 IN USE. NO S/S OF DISTRESS NOTED. WILL MONITOR. CALL LIGHT IN REACH.
--- NOTE | 2019-07-08 07:42 | NUR ---
[facility]. Awaiting auth. account planner notified.
[2019-07-08 08:00] VITALS: BP 134/65
--- NOTE | 2019-07-08 08:15 | NUR ---
PHYSICAL THERAPY Patient seen this am 1;1 for therapy visit and was supine in bed upon therapist arrival. Patient identified by name / and c/o of increased generalized, global weakness. Patient also reports bouts of increased dizziness during sitting / standing activities and instructed on visual fixation technique prior to supine to sit EOB transfer. Patient completed transfer with very slow movement to limit risk of dizziness and tolerated static EOB sit x several minutes without c/o with MIN A x 1. Patient then performed several sit to stand transfers, MIN A, use of wh walker standing support, followed by gait training with use of wh walker. Patient ambulated 40'x 1, wh walker, CGA, demonstrating very slow diane, decreased stride, and very unsteady during all 90/180 turns. Patient fatigues very quickly requiring brief standing rest break, < 20 seconds upon return to EOB sit. Patient reported only mild dizziness this session and transfered sit to supine, SBA. Patient remained in bed with HOB elevated as breakfast arrived with call light, tray table, telephone and bed alarm activated for safety. Will continue per POC as tolerated, total treatment time 16 minutes. Venkat Sherman, COMMERCIAL RELIEF DRIVER
--- NOTE | 2019-07-08 08:30 | NUR ---
OT NOTE Pt was seen this A.M. 1:1 for 20 minute OT session. Upon arrival pt was supine in bed. Pt identified by name and and had complaints of increased fatigue and generalized weakness. Pt presented to therapy with continuous 2L-O2 via NC which he remained on throughout the entire session. Pt's resting SpO2 was 97% and heart rate 70 bpm. Pt transferred supine to sit EOB with Vikas for assist with UB. While sitting EOB pt doffed and donned B socks with SBA while using compensatory technique of bringing his leg up over knee. Multiple sit to stand transfers were completed from bed level with Vikas and use of w/w for UE support. Challenged pt's static standing tolerance needed for increased I in self care tasks and functional transfers, pt was able to tolerate aprox 2 minutes at a time before sitting due to fatigue. Functional mobility was then completed to the bathroom and back with CGA and use of w/w. Throughout pt required verbal prompts for correcting his posture and breathing techniques. Pt then returned to the EOB where he transferred sit to supine with SBA. There he was left with call light in hand, tray table in place, and bed alarm activated for safety. Continue with rec D/C plan to SNF. KERRI Kolb
--- NOTE | 2019-07-08 09:46 | NUR ---
PT REQUESTED COUGH SYRUP, TESSALON PEARLES FOR COUGH, ZOFRAN FOR NAUSEA. WILL MONITOR FOR EFFECTIVENESS
--- NOTE | 2019-07-08 10:31 | NUR ---
Faxed updated clinicals and [facility]. [facility] stating isolation room is not an issue for this patient so they are starting precert now. Waiting on auth.
--- NOTE | 2019-07-08 10:46 | NUR ---
dr. us aware that patient refused lovenox today
--- NOTE | 2019-07-08 10:55 | NUR ---
Discussed isolation with Dr. Whyte. She stated follow hospital isolation policy, outside the hospital no isolation is needed. She states [facility] can test him again and if he's negative no isolation. merchandise planner and hospitalist nurse director notified.
--- NOTE | 2019-07-08 11:17 | NUR ---
LEFT MESSAGE WITH DR. SCHUMACHER OFFICE, NOTIFY OF RESPIRATORY VIRUS PROFILE RESULTS
[2019-07-08 12:00] VITALS: BP 137/60
--- NOTE | 2019-07-08 14:47 | NUR ---
OCCUPATIONAL THERAPY CO-SIGN I approve of the Occupational Therapy notes written above. CANDIDA NICK, OTR/L
[2019-07-08 16:00] VITALS: BP 153/51
[2019-07-08 20:00] VITALS: BP 156/54
[2019-07-09] VITALS: BP 139/59
[2019-07-09 08:00] VITALS: BP 133/63
--- NOTE | 2019-07-09 08:05 | NUR ---
Patient was denied auth for snf placement due to being unstable for discharge. Peer to Peer is available and must be done today 07/09/19 by calling [phone] option 2. Message given to Juliet Shannon, hospitalists nurse director and major case detective Dalia Ricks.
--- NOTE | 2019-07-09 10:15 | NUR ---
OT NOTE Pt was seen this A.M. 1:1 for 15 minute OT session. Upon arrival pt was supine in bed. Pt identified by name and and had no complaints at this time. Pt presented to therapy with continuous 2L-O2 via NC which he remained on throughout the entire session. Pt transferred supine to sit EOB with SBA. While sitting EOB pt donned B socks with SBA while bringing one leg over his knee. Sit to stand completed from bed level with CGA and use of w/w for UE support. Functional mobility was then completed into the bathroom with CGA and use of w/w for UE support. There he transferred on/off standard commode with Vikas and use of grab bar for UE support. He then stood sink side while washing his hands and pt required verbal prompts for bringing the walker with him due to poor walker safety. Pt washed his hands at the sink and throughout had multiple LOB that occured while crossing midline and standing without UE support that required Vikas to correct. Pt then completed functional mobility back to the recliner with CGA and use of w/w. There he was left sitting upright with call light in hand, tray table in place, and body alarm activated for safety. Continue with rec D/C plan to SNF. SHAWN Kolb/Beth
--- NOTE | 2019-07-09 10:24 | NUR ---
PHYSICAL THERAPY TREATMENT TIME: 10:05 AM - 10:20 AM 15 MINUTES Patient presented to therapy in supine with head of bed elevated and 2 liters of spO2 VIA NASAL CANULA. PATIENT SAYS HE DOESN'T WEAR SPo2 when he goes to the restroom. Patient was identified by name and on wristband. patient gives informed consent for treatment. Patient transferred supine to sitting on EOB with SBA. Patient sat on EOB with SBA. Patient sit to stand from EOB with CGA X 1 with verbal cues for hand placement. Patient ambulated with Wh Walker and CGA X 1 for 20' x 1 and then again, for 30' x 1 with no LOB or SOB. Patient transferred into bedside chair with CGA X 1 . Patient sit to stand out of low chair with CGA X 1. Patient was left in bedside chair wit hcall light within reach, chair alarm tested and attached to patient and tray table near patient. Patient was 1:1 wit [facility] CHROME TANNING DRUM OPERATOR for 15 minutes total. Patient connected to wall outlet with 2 liters of spO2 VIA NASAL CANULA. BRIAN GILMORE CHROME TANNING DRUM OPERATOR
--- NOTE | 2019-07-09 11:07 | NUR ---
Patient auth approved after [facility] they are waiting for confirmation and then patient is ok to go .
[2019-07-09 12:00] VITALS: BP 146/53
--- NOTE | 2019-07-09 12:57 | NUR ---
Patient is discharged to [facility] via [facility] at 2:30 PM. NH, nursing/game warden and patients all notified.
--- NOTE | 2019-07-09 14:33 | NUR ---
Discharge instructions reviewed with patient/family. Patient receptive and verbalizes understanding. Follow-up care arranged. Written instructions given to patient/family. TIFF ROSALES
--- NOTE | 2019-07-09 15:56 | NUR ---
OCCUPATIONAL THERAPY CO-SIGN I approve of the Occupational Therapy notes written above. ELMA FONG OTR/Beth
== END 2019-07-09 14:33 | disposition other institution (70) | DRG 871 ==
LOC: ED 16:33 → 5E 21:47 → 4E 21:47 → EDHOLD 21:47 → 5E 22:18 → 4E 06-30 14:24 → 5E 07-05 14:38
PROVIDERS: Family Medicine; Hospitalist; Internal Medicine; Physician Assistant; ADMIT Internal Medicine
DX: A41.9 Sepsis, unspecified organism (principal); G93.41 Metabolic encephalopathy; N17.0 Acute kidney failure with tubular necrosis; J18.9 Pneumonia, unspecified organism; E44.1 Mild protein-calorie malnutrition; N39.0 Urinary tract infection, site not specified; K59.00 Constipation, unspecified; G62.9 Polyneuropathy, unspecified; Z96.651 Presence of right artificial knee joint; M19.90 Unspecified osteoarthritis, unspecified site; N40.0 Benign prostatic hyperplasia without lower urinary tract symptoms; F32.9 Major depressive disorder, single episode, unspecified; M75.92 Shoulder lesion, unspecified, left shoulder; E78.5 Hyperlipidemia, unspecified; N41.9 Inflammatory disease of prostate, unspecified; J45.909 Unspecified asthma, uncomplicated; G89.29 Other chronic pain; N18.3 Chronic kidney disease, stage 3 (moderate); R65.20 Severe sepsis without septic shock; Z88.8 Allergy status to other drugs, medicaments and biological substances; Z90.49 Acquired absence of other specified parts of digestive tract; Z98.42 Cataract extraction status, left eye; Z98.41 Cataract extraction status, right eye; Z83.6 Family history of other diseases of the respiratory system; Z80.42 Family history of malignant neoplasm of prostate; Z82.61 Family history of arthritis; Z68.28 Body mass index [BMI] 28.0-28.9, adult

== ENCOUNTER → 2019-08-18 | Outpatient (CLI) | payer OTHER ==
[~2019-08-18] MED LIST changes: +ALLERGY EYE DRO10 M1 OP; +DONEPEZIL HCL10 MG PO; +DOXYCYCLINE100 M3 PO; +OMNICEF300 MG PO; +TRAZODONE100 MG PO; +VITAMIN D350 MC1 PO
== END | disposition home or self-care (01) ==
LOC: CT 08:48
DX: N28.89 Other specified disorders of kidney and ureter (principal); R31.0 Gross hematuria; M47.816 Spondylosis without myelopathy or radiculopathy, lumbar region

== ENCOUNTER 2019-11-04 15:04 | Inpatient (IN) | payer OTHER ==
[~2019-11-04] VITALS: Ht 177.8 cm; Wt 90.1 kg
[2019-11-04 15:37] VITALS: BP 119/54
--- NOTE | 2019-11-04 15:55 | NUR ---
PATIENT RESTING IN BED. HAS NO NEEDS. AT BEDSIDE. CALL LIGHT IN REACH
--- NOTE | 2019-11-04 16:34 | NUR ---
PATIENT STATES HE HAS NOT BEEN TESTED YET FOR CDIFF BUT HE HAS DIARRHEA WITH HISTORY OF C DIFF
--- NOTE | 2019-11-04 16:34 | NUR ---
LAB AT BESIDE
[2019-11-04 16:47] LABS: BASO % 0.5 % (0.0-1.0); EOS # 0.5 10*3/uL (0.0-0.4); EOS % 8.7 % (1.0-4.0); HEMATOCRIT 39.8 % (42.0-52.0); LYMPH % 33.4 % (27.0-41.0); MEAN CELL VOLUME 94.3 fl (80.0-94.0); MEAN CORPUSCULAR HGB 29.9 pg (27.0-31.0); MEAN CORPUSCULAR HGB CONC 31.7 g/dl (33.0-37.0); MEAN PLATELET VOLUME 9.5 fl (9.6-12.3); MONO # 0.7 10*3/uL (0.1-1.0); MONO % 11.2 % (3.0-9.0); NEUT # 2.8 10*3/uL (2.3-7.9); PLATELET COUNT AUTOMATED 194 10*3/uL (130-400); RED BLOOD COUNT 4.22 10*6/uL (4.50-5.90); RED CELL DISTRI WIDTH 12.6 % (0-14.5)
[2019-11-04 16:58] LABS: ACT PARTIAL THROMBO TIME 23.3 SECONDS (20.0-32.1)
[2019-11-04 17:03] LABS: ALBUMIN 2.8 gm/dl (3.1-4.5); ALKALINE PHOSPHATASE 81 U/L (45-117); BUN 21 mg/dl (7-24); CHLORIDE 109 mmol/L (98-107); CREATININE 1.38 mg/dL (0.70-1.30); LIPASE 300 U/L (73-393); POTASSIUM 3.8 mmol/L (3.5-5.1); SGOT/AST 10 IU/L (3-35); SGPT/ALT 19 U/L (12-78); SODIUM 138 mmol/L (136-145); TOTAL PROTEIN 7.6 gm/dL (6.4-8.2)
[2019-11-04 17:16] LABS: TROPONIN I < 0.015 ng/ml (<0.045)
--- NOTE | 2019-11-04 17:54 | NUR ---
RESTING IN BED. WARM BLANKET PROVIDED. AT BESIDE. HAS NO NEEDS.
--- NOTE | 2019-11-04 18:17 | NUR ---
DR. PETERSON AT BEDSIDE
--- NOTE | 2019-11-04 18:48 | NUR ---
PATIENT HAS BOTH HEARING AIDES WITH HIM AND UPPER DENTURES
[2019-11-04 18:52] VITALS: BP 146/88
--- NOTE | 2019-11-04 18:56 | NUR ---
REPORT TO RAJI DOOLEY
--- NOTE | 2019-11-04 19:00 | NUR ---
Transfer of care from Pita mccall.
--- NOTE | 2019-11-04 19:20 | NUR ---
In to see pt at this time.Pt has no complaints at this time.Pt has 20 gauge in lfa and positive bowel sounds.Lung sounds are also clear at this time.
[2019-11-04 19:30] VITALS: BP 110/60
--- NOTE | 2019-11-04 19:50 | NUR ---
A 78, admitted to 5E, under the services of KAM Mejias DO with a diagnosis of DIARRHEA, DEHYDRATION. Chief complaint is PER PT. WITH C-DIFF FOR PAST MONTH DIARRHEA BECOMING WORSE. Patient arrived via wheel chair from ER. Monitor applied. Initial assessment completed. Vital signs taken and recorded. KAM MEJIAS DO notified of admission to the 5E unit. Orders received. See assessment for past medical history, medications and allergies. Patient and/or family oriented to unit. [facility] visitation policy reviewed. Clothing/patient valuable form completed. RICK NGUYEN
[2019-11-04 19:52] VITALS: BP 112/62
--- NOTE | 2019-11-04 20:30 | NUR ---
DR. JONES HERE ON UNIT AND NOTIFIED OF PT.DNR COMFORT CARE AND MED REC COMPLETED.
[2019-11-05] VITALS: BP 129/42
--- NOTE | 2019-11-05 00:20 | NUR ---
DESYREL GIVEN PER PATIENT REQUEST FOR SLEEP. WILL ASSESS EFFECTIVENESS.
--- NOTE | 2019-11-05 01:18 | NUR ---
DESYREL EFFECTIVE. PATIENT RESTING IN BED. NO SIGNS/SYMPTOMS OF DISTRESS NOTED. RESPIRATIONS EASY, REGULAR. CALL LIGHT WITHIN REACH.
--- NOTE | 2019-11-05 03:37 | NUR ---
24 HR chart check completed.
--- NOTE | 2019-11-05 05:31 | NUR ---
PATIENT HAD MUSHY VERY STRONG SMELLING STOOL. STOOL SENT TO LAB FOR CULTURE.
[2019-11-05 06:29] LABS: BASO % 0.5 % (0.0-1.0); EOS # 0.5 10*3/uL (0.0-0.4); EOS % 8.6 % (1.0-4.0); HEMATOCRIT 34.8 % (42.0-52.0); LYMPH # 2.4 10*3/uL (1.3-4.4); LYMPH % 41.4 % (27.0-41.0); MEAN CELL VOLUME 94.3 fl (80.0-94.0); MEAN CORPUSCULAR HGB 30.1 pg (27.0-31.0); MEAN CORPUSCULAR HGB CONC 31.9 g/dl (33.0-37.0); MEAN PLATELET VOLUME 9.9 fl (9.6-12.3); MONO # 0.6 10*3/uL (0.1-1.0); MONO % 9.7 % (3.0-9.0); NEUT # 2.2 10*3/uL (2.3-7.9); NEUT % 39.4 % (47.0-73.0); PLATELET COUNT AUTOMATED 170 10*3/uL (130-400); RED BLOOD COUNT 3.69 10*6/uL (4.50-5.90); RED CELL DISTRI WIDTH 12.7 % (0-14.5); WHITE BLOOD COUNT 5.7 10*3/uL (4.8-10.8)
--- NOTE | 2019-11-05 06:30 | NUR ---
PATIENT HAD ANOTHER STOOL LARGE AMOUNT LOOSE AND LIQUID FOUL SMELLING STOOL. PERICARE PERFORMED AND BEDLINENS CHANGED.
[2019-11-05 06:58] LABS: BUN 19 mg/dl (7-24); CHLORIDE 112 mmol/L (98-107); CREATININE 1.37 mg/dL (0.70-1.30); POTASSIUM 3.7 mmol/L (3.5-5.1); SODIUM 142 mmol/L (136-145)
[2019-11-05 08:00] VITALS: BP 114/43
--- NOTE | 2019-11-05 08:00 | NUR ---
PT SLEEPING BUT AROUSES EASILY. NO STATED COMPLAINTS OTHER THAN FEELING TIRED. PT DENIES AND PAIN AT THIS TIME. DETERMINED THAT PT CAN REPOSITION SELF AND WAS ENCOURAGED TO DO SO. PT INCONTINENT OF BOWEL. BRIED INTACT. RESPIRATIONS ARE EASY AND REGULAR. NO SOB NOTED AT THIS TIME. BED IN LOWEST LOCKED POSITION AND CALL LIGHT WITHIN REACH. WILL CONTINUE TO MONITOR.
[2019-11-05 12:00] VITALS: BP 114/48
--- NOTE | 2019-11-05 12:12 | NUR ---
Patient Care Secretary in to talk to patient. Patient states lives at HOME with . There are SEVERAL steps in the home. Physician: SONYA GAR [facility]: HAS [facility]AP[facility] FROM [facility] Patient's level of ADLs: MODERATE ASSIST Patient has working utilities: YES DME: WALKER, STAIR LIFT Follow-up physician's appointment after d/c: WILL BE MADE BY HOSPITALIST NURSE DIRECTOR ON DISCHARGE Does patient want to access PORTAL?: NO Discharge plan PT LIVES AT HOME WITH HIS . STATES HE DOES NEED SOME ASSISTANCE WITH ADL'S. STATES HE GETS TH[facility]AP[facility] TALKED WITH HIM ABOUT HOME HEALTH OR SNF STAY PRIOR TO GOING HOME BUT HE REFUSES BOTH AT THIS TIME. PLANS TO RETURN HOME WHEN MEDICALLY STABLE. WILL CONTINUE TO FOLLOW. STATES HE WILL HAVE A RIDE HOME ON DISCHARGE.. ALESIA NAVARRO
[2019-11-05 16:00] VITALS: BP 120/43
[2019-11-05] MEDS ORDERED: RESTASIS1 EACH OP (16:41)
[2019-11-05 20:00] VITALS: BP 128/51
--- NOTE | 2019-11-05 20:46 | NUR ---
24 HR chart check completed.
--- NOTE | 2019-11-05 22:07 | NUR ---
TRAZADONE GIVEN PER ORDER FOR INSOMNIA. SEE MAR.
--- NOTE | 2019-11-05 23:00 | NUR ---
TRAZADONE EFFECTIVE PT. SLEEPING.
[2019-11-06] VITALS: BP 102/42
[2019-11-06 06:06] LABS: BASO % 0.6 % (0.0-1.0); EOS # 0.5 10*3/uL (0.0-0.4); EOS % 9.3 % (1.0-4.0); HEMATOCRIT 35.6 % (42.0-52.0); LYMPH # 2.1 10*3/uL (1.3-4.4); LYMPH % 40.7 % (27.0-41.0); MEAN CELL VOLUME 96.7 fl (80.0-94.0); MEAN CORPUSCULAR HGB 29.9 pg (27.0-31.0); MEAN CORPUSCULAR HGB CONC 30.9 g/dl (33.0-37.0); MEAN PLATELET VOLUME 9.7 fl (9.6-12.3); MONO # 0.4 10*3/uL (0.1-1.0); MONO % 8.6 % (3.0-9.0); NEUT # 2.1 10*3/uL (2.3-7.9); NEUT % 40.4 % (47.0-73.0); PLATELET COUNT AUTOMATED 166 10*3/uL (130-400); RED BLOOD COUNT 3.68 10*6/uL (4.50-5.90); RED CELL DISTRI WIDTH 12.7 % (0-14.5); WHITE BLOOD COUNT 5.1 10*3/uL (4.8-10.8)
--- NOTE | 2019-11-06 06:34 | NUR ---
PT. CLEANED UP, HAD VERY SMALL STOOL UNABLE TO SEND SPECIMEN AT THIS TIME.
[2019-11-06 06:55] LABS: BUN 15 mg/dl (7-24); CHLORIDE 111 mmol/L (98-107); CREATININE 1.23 mg/dL (0.70-1.30); POTASSIUM 4.1 mmol/L (3.5-5.1); SODIUM 141 mmol/L (136-145)
--- NOTE | 2019-11-06 07:30 | NUR ---
TOOK OVER CARE OF PT AT THIS TIME. PT RESTING IN BED, RESPIRATIONS EASY AND UNLABORED. NO S/S OF DISTRESS NOTED. PT DENIES PAIN AT THIS TIME. SAFETY MEASURES IN PLACE. IV FLUIDS INFUSING PER ORDERS. CALL LIGHT IN REACH.
[2019-11-06 08:00] VITALS: BP 124/54
[2019-11-06 09:22] VITALS: BP 102/50
[2019-11-06 12:00] VITALS: BP 153/50
--- NOTE | 2019-11-06 12:07 | NUR ---
PT GIVEN TYLENOL 650 MG PO FOR C/O BACK PAIN. WILL MONITOR FOR EFFECTIVENESS. PT RESTING IN BED. SAFETY MEASURES IN PLACE. CALL LIGHT IN REACH.
--- NOTE | 2019-11-06 12:08 | NUR ---
TYLENOL EFFECTIVE PER PT.
--- NOTE | 2019-11-06 12:50 | NUR ---
TALKED WITH [facility]. PT IS CURRENTLY ACTIVE WITH THEM. RESUME HOME HEALTH FAXED TO [facility].
[2019-11-06 16:00] VITALS: BP 150/65
--- NOTE | 2019-11-06 17:40 | NUR ---
EVENING MEDS GIVEN PER ORDERS. PT RESTING IN BED. PT DENIES PAIN OR DISTRESS. RESPIRATIONS EASY AND UNLABORED. CALL LIGHT IN REACH.
--- NOTE | 2019-11-06 19:30 | NUR ---
Patient resting quietly with no c/o discomfort. Respirations easy and regular. Vital signs stable. No overt distress. CYNDI BOATENG
[2019-11-06 20:00] VITALS: BP 144/65
--- NOTE | 2019-11-06 22:39 | NUR ---
Medicated with po trazodone as ordered per pt request for c/o insomnia.
[2019-11-07] VITALS: BP 118/69
--- NOTE | 2019-11-07 | NUR ---
MEDICATION EFFECTIVE FOR INSOMNIA.
--- NOTE | 2019-11-07 02:06 | NUR ---
24 HR chart check completed.
--- NOTE | 2019-11-07 04:09 | NUR ---
Patient resting quietly with no c/o discomfort. Respirations easy and regular. Vital signs stable. No overt distress. CYNDI BOATENG
[2019-11-07 07:10] LABS: BASO % 0.5 % (0.0-1.0); EOS # 0.6 10*3/uL (0.0-0.4); EOS % 9.8 % (1.0-4.0); HEMATOCRIT 35.8 % (42.0-52.0); LYMPH % 34.2 % (27.0-41.0); MEAN CORPUSCULAR HGB 29.4 pg (27.0-31.0); MEAN CORPUSCULAR HGB CONC 31.3 g/dl (33.0-37.0); MEAN PLATELET VOLUME 9.7 fl (9.6-12.3); MONO # 0.5 10*3/uL (0.1-1.0); MONO % 8.2 % (3.0-9.0); NEUT # 2.7 10*3/uL (2.3-7.9); NEUT % 46.8 % (47.0-73.0); PLATELET COUNT AUTOMATED 171 10*3/uL (130-400); RED BLOOD COUNT 3.81 10*6/uL (4.50-5.90); RED CELL DISTRI WIDTH 12.5 % (0-14.5); WHITE BLOOD COUNT 5.8 10*3/uL (4.8-10.8)
--- NOTE | 2019-11-07 07:30 | NUR ---
TOOK OVER CARE OF PT. PT RESTING IN BED, SLEEPING. NOT AWAKENED AT THIS TIME. RESPIRATIONS EASY AND UNLABORED ON ROOM AIR. IV FLUIDS INFUSING PER ORDERS. SAFETY MEASURES IN PLACE. CALL LIGHT IN REACH.
[2019-11-07 07:33] LABS: BUN 18 mg/dl (7-24); CHLORIDE 111 mmol/L (98-107); CREATININE 1.18 mg/dL (0.70-1.30); SODIUM 142 mmol/L (136-145)
[2019-11-07 08:00] VITALS: BP 136/56
--- NOTE | 2019-11-07 11:00 | NUR ---
DR YODER STATES THAT PT NO LONGER NEEDS TO BE IN ISOLATION PRECAUTIONS DUE TO NEGATIVE C DIFF.
[2019-11-07 12:00] VITALS: BP 136/56
[2019-11-07 16:00] VITALS: BP 116/65
--- NOTE | 2019-11-07 18:28 | NUR ---
PT GIVEN EVENING MEDICATIONS. PT DENIES ANY DISTRESS AT THIS TIME AND DENIES NEEDING ANYTHING. IV FLUIDS INFUSING PER ORDERS. IV SITE TO LEFT ARM IS PATENT WITH ADEQUATE BLOOD RETURN. WILL CONTINUE TO MONITOR. CALL LIGHT IN REACH.
--- NOTE | 2019-11-07 18:43 | NUR ---
PT GIVEN IMODIUM 2 MG AT THIS TIME PER PRN ORDER FOR C/O DIARRHEA. WILL HAVE PM NURSE MONITOR FOR EFFECTIVENESS OF THIS MEDICATION. PT RESTING IN BED. CALL LIGHT IN REACH.
[2019-11-07 18:46] VITALS: BP 112/70
--- NOTE | 2019-11-07 19:35 | NUR ---
VOICES NO C/O DIARRHEA AT THIS TIME; IMMODIUM GIVEN EARLIER APPARENTLY EFFECTIVE.
[2019-11-07 20:00] VITALS: BP 144/54
[2019-11-08] VITALS: BP 127/55
--- NOTE | 2019-11-08 00:37 | NUR ---
MEDICATED WITH TRAZODONE PER PT'S REQUEST FOR SLEEP.
--- NOTE | 2019-11-08 01:15 | NUR ---
RESTING IN BED WITH EYES CLOSED; TRAZADONE EFFECTIVE.
[2019-11-08 06:29] LABS: BASO % 0.5 % (0.0-1.0); EOS # 0.6 10*3/uL (0.0-0.4); EOS % 8.2 % (1.0-4.0); HEMATOCRIT 36.4 % (42.0-52.0); LYMPH # 1.8 10*3/uL (1.3-4.4); LYMPH % 24.3 % (27.0-41.0); MEAN CELL VOLUME 94.5 fl (80.0-94.0); MEAN CORPUSCULAR HGB 30.1 pg (27.0-31.0); MEAN CORPUSCULAR HGB CONC 31.9 g/dl (33.0-37.0); MEAN PLATELET VOLUME 9.4 fl (9.6-12.3); MONO # 0.6 10*3/uL (0.1-1.0); MONO % 7.9 % (3.0-9.0); NEUT # 4.4 10*3/uL (2.3-7.9); NEUT % 58.6 % (47.0-73.0); PLATELET COUNT AUTOMATED 167 10*3/uL (130-400); RED BLOOD COUNT 3.85 10*6/uL (4.50-5.90); RED CELL DISTRI WIDTH 12.6 % (0-14.5); WHITE BLOOD COUNT 7.6 10*3/uL (4.8-10.8)
--- NOTE | 2019-11-08 06:30 | NUR ---
RESTING IN BED WITH EYES CLOSED. IV FLUIDS INFUSING ORDERED; SITE ASYMPTOMATIC. CALL LIGHT WITHIN REACH.
[2019-11-08 06:54] LABS: BUN 18 mg/dl (7-24); CHLORIDE 108 mmol/L (98-107); POTASSIUM 4.1 mmol/L (3.5-5.1); SODIUM 140 mmol/L (136-145)
--- NOTE | 2019-11-08 07:30 | NUR ---
PT RESTING IN BED. VOICES NO CONCERNS AT THIS TIME. RESPS EASY AND NON LABORED. NO S/S OF DISTRESS NOTED. VSS. WHITE BOARD UPDATED. CALL LIGHT WITHIN REACH. POC DISCUSSED W PT. NO FURTHER EPISODES OF DIARRHEA NOTED. ABD SLIGHTY TENDER/DISTENDED. PT STATES HE HAS BEEN PASSING FLATUS. NS INFUSING @ 80ML/H.
[2019-11-08 08:00] VITALS: BP 134/61
[2019-11-08 12:00] VITALS: BP 148/64
--- NOTE | 2019-11-08 13:30 | NUR ---
SPOKE WITH WHO STATES SHE WILL PROVIDE TRANSPORTATION FOR DISCHARGE. POC DISCUSSED W HER.
[2019-11-08] MEDS ORDERED: ANTI-DIARRHEAL2 MG PO (13:52)
[2019-11-08] MEDS ORDERED: LOMOTIL 2.5-0.1 EACH PO (13:52)
--- NOTE | 2019-11-08 15:42 | NUR ---
Discharge instructions reviewed with patient/family. Patient receptive and verbalizes understanding. Follow-up care arranged. Written instructions given to patient/family. MIRANDA NELSON The Discharge Plan/Instructions have been completed. Hep Lock discontinued. Site asymptomatic. Pressure applied. Sterile dressing applied. MIRANDA NELSON
== END 2019-11-08 15:42 | disposition home health service (06) | DRG 682 ==
LOC: ED 15:04 → EDHOLD 18:41 → 5E 18:41
PROVIDERS: Emergency Medicine; Internal Medicine; ADMIT Internal Medicine
DX: N17.0 Acute kidney failure with tubular necrosis (principal); E43 Unspecified severe protein-calorie malnutrition; A08.4 Viral intestinal infection, unspecified; E86.0 Dehydration; Q98.4 Klinefelter syndrome, unspecified; R53.1 Weakness; R00.1 Bradycardia, unspecified; D53.9 Nutritional anemia, unspecified; E87.8 Other disorders of electrolyte and fluid balance, not elsewhere classified; R79.82 Elevated C-reactive protein (CRP); R79.89 Other specified abnormal findings of blood chemistry; N40.0 Benign prostatic hyperplasia without lower urinary tract symptoms; M19.90 Unspecified osteoarthritis, unspecified site; F32.9 Major depressive disorder, single episode, unspecified; J45.909 Unspecified asthma, uncomplicated; Z66 Do not resuscitate; Z96.651 Presence of right artificial knee joint; E78.5 Hyperlipidemia, unspecified; Z51.5 Encounter for palliative care; G62.9 Polyneuropathy, unspecified; N18.3 Chronic kidney disease, stage 3 (moderate); Z86.010 Personal history of colon polyps; Z90.49 Acquired absence of other specified parts of digestive tract; Z98.41 Cataract extraction status, right eye; Z98.42 Cataract extraction status, left eye; Z87.891 Personal history of nicotine dependence; Z88.8 Allergy status to other drugs, medicaments and biological substances; Z82.5 Family history of asthma and other chronic lower respiratory diseases; Z80.42 Family history of malignant neoplasm of prostate; Z80.8 Family history of malignant neoplasm of other organs or systems; Z82.0 Family history of epilepsy and other diseases of the nervous system; Z84.89 Family history of other specified conditions; Z79.899 Other long term (current) drug therapy; Z68.28 Body mass index [BMI] 28.0-28.9, adult

== ENCOUNTER 2020-06-16 23:53 | Emergency (ER) | payer MEDICARE ==
[~2020-06-16] VITALS: Ht 172.7 cm; Wt 72.6 kg
[~2020-06-16 23:53] MED LIST changes: +ANTI-DIARRHEAL2 MG PO; +LOMOTIL 2.5-0.1 EACH PO; +RESTASIS1 EACH OP
[2020-06-17 00:35] LABS: BASO % 0.6 % (0.0-1.0); EOS # 0.5 10*3/uL (0.0-0.4); EOS % 7.2 % (1.0-4.0); HEMATOCRIT 38.9 % (42.0-52.0); LYMPH % 27.8 % (27.0-41.0); MEAN CELL VOLUME 93.7 fl (80.0-94.0); MEAN CORPUSCULAR HGB 29.2 pg (27.0-31.0); MEAN CORPUSCULAR HGB CONC 31.1 g/dl (33.0-37.0); MEAN PLATELET VOLUME 9.3 fl (9.6-12.3); MONO # 0.5 10*3/uL (0.1-1.0); MONO % 7.1 % (3.0-9.0); NEUT % 56.9 % (47.0-73.0); PLATELET COUNT AUTOMATED 197 10*3/uL (130-400); RED BLOOD COUNT 4.15 10*6/uL (4.50-5.90); RED CELL DISTRI WIDTH 12.6 % (0-14.5)
[2020-06-17 00:53] LABS: ALBUMIN 2.8 gm/dl (3.1-4.5); ALKALINE PHOSPHATASE 79 U/L (45-117); BUN 20 mg/dl (7-24); CHLORIDE 103 mmol/L (98-107); CREATININE 1.33 mg/dL (0.70-1.30); SGOT/AST 15 IU/L (3-35); SGPT/ALT 17 U/L (12-78); SODIUM 140 mmol/L (136-145); TOTAL PROTEIN 7.2 gm/dL (6.4-8.2)
[2020-06-17 00:54] LABS: TROPONIN I < 0.015 ng/ml (<0.045)
[2020-06-17 04:24] LABS: BILIRUBIN Negative (Negative); BLOOD Negative (Negative); CLARITY Clear (Clear); COLOR Yellow (Yellow); GLUCOSE Negative (Negative); KETONE Negative (Negative); LEUKO ESTERASE Negative (Negative); NITRITE Negative (Negative); PH 6.5 (4.5-8.0)
[2020-06-17 04:31] LABS: RBC 0-2 rbc/hpf (0-2); WBC 0-2 wbc/hpf (0-5)
== END 2020-06-17 05:46 | disposition home or self-care (01) ==
LOC: ED 23:53
PROVIDERS: Emergency Medicine
DX: R55 Syncope and collapse (principal)

== ENCOUNTER → 2020-07-27 | Outpatient (CLI) | payer OTHER | END | disposition home or self-care (01) | LOC: MRI 10:52 | PROVIDERS: ATTEND Nurse Practitioner Family | DX: I67.82 Cerebral ischemia (principal); R27.0 Ataxia, unspecified; R41.82 Altered mental status, unspecified ==

== ENCOUNTER 2020-10-01 18:52 | Inpatient (IN) | payer OTHER ==
[~2020-10-01] VITALS: Ht 177.8 cm; Wt 89.2 kg
[2020-10-01 09:10] VITALS: BP 117/57
[2020-10-01 18:52] VITALS: BP 141/42
[2020-10-01 22:00] VITALS: BP 146/48
[2020-10-02 02:16] LABS: BASO % 0.4 % (0.0-1.0); EOS # 0.2 10*3/uL (0.0-0.4); EOS % 2.9 % (1.0-4.0); HEMATOCRIT 34.4 % (42.0-52.0); LYMPH # 1.9 10*3/uL (1.3-4.4); LYMPH % 24.8 % (27.0-41.0); MEAN CELL VOLUME 92.7 fl (80.0-94.0); MEAN CORPUSCULAR HGB 29.4 pg (27.0-31.0); MEAN CORPUSCULAR HGB CONC 31.7 g/dl (33.0-37.0); MEAN PLATELET VOLUME 9.2 fl (9.6-12.3); MONO # 0.7 10*3/uL (0.1-1.0); NEUT # 4.8 10*3/uL (2.3-7.9); NEUT % 62.6 % (47.0-73.0); PLATELET COUNT AUTOMATED 190 10*3/uL (130-400); RED BLOOD COUNT 3.71 10*6/uL (4.50-5.90); RED CELL DISTRI WIDTH 12.8 % (0-14.5); WHITE BLOOD COUNT 7.7 10*3/uL (4.8-10.8)
[2020-10-02 02:35] LABS: ALBUMIN 2.7 gm/dl (3.1-4.5); ALKALINE PHOSPHATASE 79 U/L (45-117); BUN 24 mg/dl (7-24); CHLORIDE 104 mmol/L (98-107); CREATININE 1.13 mg/dL (0.70-1.30); POTASSIUM 3.9 mmol/L (3.5-5.1); SGOT/AST 14 IU/L (3-35); SGPT/ALT 12 U/L (12-78); SODIUM 140 mmol/L (136-145); TOTAL PROTEIN 7.1 gm/dL (6.4-8.2)
[2020-10-02 03:08] VITALS: BP 132/25
[2020-10-02 06:01] LABS: BASO % 0.4 % (0.0-1.0); EOS # 0.2 10*3/uL (0.0-0.4); EOS % 2.9 % (1.0-4.0); HEMATOCRIT 35.2 % (42.0-52.0); LYMPH # 1.5 10*3/uL (1.3-4.4); LYMPH % 20.6 % (27.0-41.0); MEAN CELL VOLUME 93.1 fl (80.0-94.0); MEAN CORPUSCULAR HGB 29.1 pg (27.0-31.0); MEAN CORPUSCULAR HGB CONC 31.3 g/dl (33.0-37.0); MEAN PLATELET VOLUME 9.4 fl (9.6-12.3); MONO # 0.6 10*3/uL (0.1-1.0); MONO % 8.6 % (3.0-9.0); NEUT # 4.8 10*3/uL (2.3-7.9); NEUT % 67.2 % (47.0-73.0); PLATELET COUNT AUTOMATED 173 10*3/uL (130-400); RED BLOOD COUNT 3.78 10*6/uL (4.50-5.90); RED CELL DISTRI WIDTH 12.9 % (0-14.5); WHITE BLOOD COUNT 7.1 10*3/uL (4.8-10.8)
[2020-10-02 06:09] LABS: ACT PARTIAL THROMBO TIME 25.5 SECONDS (20.0-32.1)
[2020-10-02 06:22] LABS: ALBUMIN 2.8 gm/dl (3.1-4.5); ALKALINE PHOSPHATASE 80 U/L (45-117); BUN 24 mg/dl (7-24); CHLORIDE 102 mmol/L (98-107); CREATININE 1.16 mg/dL (0.70-1.30); SGOT/AST 13 IU/L (3-35); SGPT/ALT 11 U/L (12-78); SODIUM 138 mmol/L (136-145); TOTAL PROTEIN 7.2 gm/dL (6.4-8.2)
[2020-10-02 06:25] VITALS: BP 145/49
[2020-10-02 07:21] VITALS: BP 137/62
[2020-10-02 09:10] VITALS: BP 117/57
[2020-10-02 16:00] VITALS: BP 128/54
[2020-10-02 20:00] VITALS: BP 111/50
[2020-10-03] VITALS: BP 147/56
[2020-10-03 07:02] LABS: BUN 26 mg/dl (7-24); CHLORIDE 101 mmol/L (98-107); CREATININE 1.12 mg/dL (0.70-1.30); POTASSIUM 4.2 mmol/L (3.5-5.1); SODIUM 136 mmol/L (136-145)
[2020-10-03 07:03] LABS: BASO % 0.2 % (0.0-1.0); EOS # 0.2 10*3/uL (0.0-0.4); EOS % 2.7 % (1.0-4.0); HEMATOCRIT 32.5 % (42.0-52.0); LYMPH # 2.1 10*3/uL (1.3-4.4); LYMPH % 25.1 % (27.0-41.0); MEAN CELL VOLUME 94.5 fl (80.0-94.0); MEAN CORPUSCULAR HGB 29.4 pg (27.0-31.0); MEAN CORPUSCULAR HGB CONC 31.1 g/dl (33.0-37.0); MEAN PLATELET VOLUME 9.6 fl (9.6-12.3); MONO # 0.9 10*3/uL (0.1-1.0); MONO % 10.9 % (3.0-9.0); NEUT # 5.2 10*3/uL (2.3-7.9); NEUT % 60.7 % (47.0-73.0); PLATELET COUNT AUTOMATED 177 10*3/uL (130-400); RED BLOOD COUNT 3.44 10*6/uL (4.50-5.90); RED CELL DISTRI WIDTH 13.2 % (0-14.5); WHITE BLOOD COUNT 8.5 10*3/uL (4.8-10.8)
[2020-10-03 08:00] VITALS: BP 146/60
[2020-10-03 12:00] VITALS: BP 140/56
[2020-10-03 16:28] VITALS: BP 137/65
[2020-10-03 20:00] VITALS: BP 138/59
[2020-10-04] VITALS: BP 152/61
[2020-10-04 07:18] LABS: BASO % 0.4 % (0.0-1.0); EOS # 0.2 10*3/uL (0.0-0.4); EOS % 3.4 % (1.0-4.0); HEMATOCRIT 31.8 % (42.0-52.0); LYMPH # 1.8 10*3/uL (1.3-4.4); LYMPH % 27.4 % (27.0-41.0); MEAN CELL VOLUME 93.3 fl (80.0-94.0); MEAN CORPUSCULAR HGB 29.3 pg (27.0-31.0); MEAN CORPUSCULAR HGB CONC 31.4 g/dl (33.0-37.0); MEAN PLATELET VOLUME 9.6 fl (9.6-12.3); MONO # 0.8 10*3/uL (0.1-1.0); MONO % 12.2 % (3.0-9.0); NEUT # 3.8 10*3/uL (2.3-7.9); NEUT % 56.5 % (47.0-73.0); PLATELET COUNT AUTOMATED 169 10*3/uL (130-400); RED BLOOD COUNT 3.41 10*6/uL (4.50-5.90); WHITE BLOOD COUNT 6.7 10*3/uL (4.8-10.8)
[2020-10-04 07:42] LABS: BUN 17 mg/dl (7-24); CHLORIDE 102 mmol/L (98-107); CREATININE 0.98 mg/dL (0.70-1.30); POTASSIUM 3.9 mmol/L (3.5-5.1); SODIUM 138 mmol/L (136-145)
[2020-10-04 08:00] VITALS: BP 120/58
[2020-10-04 12:00] VITALS: BP 117/50
[2020-10-04 16:00] VITALS: BP 126/69
[2020-10-04 20:00] VITALS: BP 143/87
[2020-10-05] VITALS: BP 138/56
[2020-10-05 08:00] VITALS: BP 129/44
[2020-10-05 12:00] VITALS: BP 124/50
[2020-10-05 15:00] VITALS: BP 138/73
[2020-10-05 20:00] VITALS: BP 124/55
[2020-10-06] VITALS: BP 112/45
[2020-10-06 08:00] VITALS: BP 132/52
[2020-10-06 12:00] VITALS: BP 127/52
[2020-10-06] MEDS ORDERED: HYDROCODONE-AC1 EAC1 PO (14:12)
[2020-10-06 16:00] VITALS: BP 125/54
== END 2020-10-06 19:10 | DRG 564 ==
LOC: ED 18:52 → 5E 10-02 02:14 → EDHOLD 10-02 02:14 → 5E 10-02 08:54
PROVIDERS: Emergency Medicine; Hospitalist; Student in an Organized Health Care Education/Training Program; ADMIT Internal Medicine; ATTEND Internal Medicine
DX: M25.461 Effusion, right knee (principal); E43 Unspecified severe protein-calorie malnutrition; I50.32 Chronic diastolic (congestive) heart failure; F33.9 Major depressive disorder, recurrent, unspecified; R26.2 Difficulty in walking, not elsewhere classified; D64.9 Anemia, unspecified; J45.909 Unspecified asthma, uncomplicated; N18.2 Chronic kidney disease, stage 2 (mild); Z20.822 Contact with and (suspected) exposure to COVID-19; Z96.651 Presence of right artificial knee joint; N40.0 Benign prostatic hyperplasia without lower urinary tract symptoms; G89.29 Other chronic pain; G62.9 Polyneuropathy, unspecified; M17.0 Bilateral primary osteoarthritis of knee; E78.2 Mixed hyperlipidemia; Z66 Do not resuscitate; Z51.5 Encounter for palliative care; Z88.8 Allergy status to other drugs, medicaments and biological substances; Z86.010 Personal history of colon polyps; Z98.42 Cataract extraction status, left eye; Z98.41 Cataract extraction status, right eye; Z90.49 Acquired absence of other specified parts of digestive tract; Z80.42 Family history of malignant neoplasm of prostate; Z81.8 Family history of other mental and behavioral disorders; Z83.6 Family history of other diseases of the respiratory system; Z82.61 Family history of arthritis; Z68.28 Body mass index [BMI] 28.0-28.9, adult

== ENCOUNTER → 2020-10-27 | Outpatient (CLI) | payer MEDICARE ==
[~2020-10-27] MED LIST changes: +HYDROCODONE-AC1 EAC1 PO
== END | disposition home or self-care (01) ==
LOC: RAD 00:52
PROVIDERS: ATTEND Orthopaedic Surgery
DX: M97.11XA Periprosthetic fracture around internal prosthetic right knee joint, initial encounter (principal); M25.461 Effusion, right knee; Z96.651 Presence of right artificial knee joint; X58.XXXA Exposure to other specified factors, initial encounter

== ENCOUNTER 2021-01-13 12:29 | Inpatient (IN) | payer MEDICARE ==
[~2021-01-13] VITALS: Ht 172.7 cm; Wt 87.6 kg
[2021-01-13 12:33] VITALS: BP 114/44
[2021-01-13 13:04] LABS: BASO % 0.7 % (0.0-1.0); EOS # 0.3 10*3/uL (0.0-0.4); EOS % 5.9 % (1.0-4.0); HEMATOCRIT 37.2 % (42.0-52.0); LYMPH # 1.1 10*3/uL (1.3-4.4); LYMPH % 24.3 % (27.0-41.0); MEAN CELL VOLUME 93.7 fl (80.0-94.0); MEAN CORPUSCULAR HGB 29.5 pg (27.0-31.0); MEAN CORPUSCULAR HGB CONC 31.5 g/dl (33.0-37.0); MEAN PLATELET VOLUME 9.5 fl (9.6-12.3); MONO # 0.3 10*3/uL (0.1-1.0); MONO % 5.6 % (3.0-9.0); NEUT # 2.9 10*3/uL (2.3-7.9); NEUT % 63.1 % (47.0-73.0); PLATELET COUNT AUTOMATED 177 10*3/uL (130-400); RED BLOOD COUNT 3.97 10*6/uL (4.50-5.90); RED CELL DISTRI WIDTH 13.2 % (0-14.5); WHITE BLOOD COUNT 4.6 10*3/uL (4.8-10.8)
[2021-01-13 13:23] LABS: ALBUMIN 2.9 gm/dl (3.1-4.5); ALKALINE PHOSPHATASE 76 U/L (45-117); BUN 18 mg/dl (7-24); CHLORIDE 105 mmol/L (98-107); CREATININE 1.29 mg/dL (0.70-1.30); POTASSIUM 4.9 mmol/L (3.5-5.1); SGOT/AST 11 IU/L (3-35); SGPT/ALT 15 U/L (12-78); SODIUM 140 mmol/L (136-145); TOTAL PROTEIN 7.2 gm/dL (6.4-8.2)
[2021-01-13 13:25] LABS: TROPONIN I < 0.015 ng/ml (<0.045)
[2021-01-13 13:34] VITALS: BP 127/42
[2021-01-13 15:55] VITALS: BP 141/95
[2021-01-13 15:58] LABS: BILIRUBIN Negative (Negative); BLOOD Negative (Negative); CLARITY Clear (Clear); COLOR Yellow (Yellow); GLUCOSE Negative (Negative); KETONE Negative (Negative); LEUKO ESTERASE Negative (Negative); NITRITE Negative (Negative); PH 5.5 (4.5-8.0); SPECIFIC GRAVITY 1.015 (1.001-1.030); UROBILINOGEN 0.2 E.U./dl (0.0-1.0)
[2021-01-13 16:04] LABS: BACTERIA TRACE; RBC 0-2 rbc/hpf (0-2); WBC 0-2 wbc/hpf (0-5)
[2021-01-13 19:35] VITALS: BP 109/64
[2021-01-13 21:13] VITALS: BP 100/39
[2021-01-13 21:50] VITALS: BP 131/90
[2021-01-13] MEDS ORDERED: IRON325 M1 PO (23:10)
[2021-01-13] MEDS ORDERED: VITAMIN C1000 M4 PO (23:11)
[2021-01-13] MEDS ORDERED: MAGNESIUM400 M1 PO (23:11)
[2021-01-14] VITALS: BP 106/38
[2021-01-14 06:13] LABS: BASO % 0.5 % (0.0-1.0); EOS # 0.3 10*3/uL (0.0-0.4); EOS % 4.1 % (1.0-4.0); HEMATOCRIT 34.7 % (42.0-52.0); LYMPH # 2.1 10*3/uL (1.3-4.4); LYMPH % 34.3 % (27.0-41.0); MEAN CELL VOLUME 95.1 fl (80.0-94.0); MEAN CORPUSCULAR HGB CONC 30.5 g/dl (33.0-37.0); MEAN PLATELET VOLUME 9.8 fl (9.6-12.3); MONO # 0.5 10*3/uL (0.1-1.0); MONO % 8.6 % (3.0-9.0); NEUT # 3.2 10*3/uL (2.3-7.9); NEUT % 52.3 % (47.0-73.0); PLATELET COUNT AUTOMATED 168 10*3/uL (130-400); RED BLOOD COUNT 3.65 10*6/uL (4.50-5.90); RED CELL DISTRI WIDTH 13.4 % (0-14.5); WHITE BLOOD COUNT 6.2 10*3/uL (4.8-10.8)
[2021-01-14 06:36] LABS: BUN 19 mg/dl (7-24); CHLORIDE 107 mmol/L (98-107); CREATININE 1.07 mg/dL (0.70-1.30); POTASSIUM 4.4 mmol/L (3.5-5.1); SODIUM 141 mmol/L (136-145)
[2021-01-14 08:00] VITALS: BP 130/49
[2021-01-14 12:00] VITALS: BP 140/51
[2021-01-14 16:00] VITALS: BP 135/65
[2021-01-14 20:00] VITALS: BP 131/63
[2021-01-15] VITALS: BP 117/52
[2021-01-15 06:42] LABS: BUN 17 mg/dl (7-24); CHLORIDE 108 mmol/L (98-107); CREATININE 0.99 mg/dL (0.70-1.30); POTASSIUM 4.2 mmol/L (3.5-5.1); SODIUM 141 mmol/L (136-145)
[2021-01-15 08:00] VITALS: BP 109/55
== END 2021-01-15 13:21 | disposition home health service (06) | DRG 641 ==
LOC: ED 12:29 → EDHOLD 15:15 → 4E 21:01
PROVIDERS: Emergency Medicine; Internal Medicine; Student in an Organized Health Care Education/Training Program; ADMIT Family Medicine; ATTEND Family Medicine
DX: E86.0 Dehydration (principal); E44.0 Moderate protein-calorie malnutrition; I50.32 Chronic diastolic (congestive) heart failure; R55 Syncope and collapse; D64.9 Anemia, unspecified; Q98.4 Klinefelter syndrome, unspecified; F32.9 Major depressive disorder, single episode, unspecified; N18.9 Chronic kidney disease, unspecified; R11.2 Nausea with vomiting, unspecified; D72.819 Decreased white blood cell count, unspecified; R73.9 Hyperglycemia, unspecified; R00.1 Bradycardia, unspecified; R29.6 Repeated falls; N40.0 Benign prostatic hyperplasia without lower urinary tract symptoms; Z96.651 Presence of right artificial knee joint; M19.90 Unspecified osteoarthritis, unspecified site; E78.5 Hyperlipidemia, unspecified; G62.9 Polyneuropathy, unspecified; J45.909 Unspecified asthma, uncomplicated; Z88.8 Allergy status to other drugs, medicaments and biological substances; Z90.49 Acquired absence of other specified parts of digestive tract; Z98.41 Cataract extraction status, right eye; Z98.42 Cataract extraction status, left eye; Z87.891 Personal history of nicotine dependence; Z82.5 Family history of asthma and other chronic lower respiratory diseases; Z82.0 Family history of epilepsy and other diseases of the nervous system; Z80.42 Family history of malignant neoplasm of prostate; Z80.8 Family history of malignant neoplasm of other organs or systems; Z84.89 Family history of other specified conditions; Z86.010 Personal history of colon polyps; Z79.899 Other long term (current) drug therapy; Z68.29 Body mass index [BMI] 29.0-29.9, adult

== ENCOUNTER 2021-03-16 12:21 | Emergency (ER) | payer MEDICARE ==
[~2021-03-16] VITALS: Ht 177.8 cm; Wt 86.6 kg
[~2021-03-16 12:21] MED LIST changes: +IRON325 M1 PO; +MAGNESIUM400 M1 PO; +VITAMIN C1000 M4 PO
[2021-03-16 13:11] LABS: BASO % 0.5 % (0.0-1.0); EOS # 0.2 10*3/uL (0.0-0.4); EOS % 3.3 % (1.0-4.0); LYMPH # 1.9 10*3/uL (1.3-4.4); LYMPH % 32.1 % (27.0-41.0); MEAN CELL VOLUME 93.7 fl (80.0-94.0); MEAN CORPUSCULAR HGB 29.5 pg (27.0-31.0); MEAN CORPUSCULAR HGB CONC 31.5 g/dl (33.0-37.0); MEAN PLATELET VOLUME 9.1 fl (9.6-12.3); MONO # 0.5 10*3/uL (0.1-1.0); MONO % 8.1 % (3.0-9.0); NEUT # 3.2 10*3/uL (2.3-7.9); NEUT % 55.8 % (47.0-73.0); PLATELET COUNT AUTOMATED 166 10*3/uL (130-400); RED BLOOD COUNT 4.27 10*6/uL (4.50-5.90); RED CELL DISTRI WIDTH 12.7 % (0-14.5); WHITE BLOOD COUNT 5.8 10*3/uL (4.8-10.8)
[2021-03-16 13:27] LABS: ALBUMIN 2.5 gm/dl (3.1-4.5); ALKALINE PHOSPHATASE 71 U/L (45-117); BUN 20 mg/dl (7-24); CHLORIDE 105 mmol/L (98-107); CREATININE 1.23 mg/dL (0.70-1.30); LIPASE 190 U/L (73-393); POTASSIUM 4.9 mmol/L (3.5-5.1); SGOT/AST 18 IU/L (3-35); SGPT/ALT 17 U/L (12-78); SODIUM 139 mmol/L (136-145); TOTAL PROTEIN 7.1 gm/dL (6.4-8.2)
[2021-03-16 13:31] LABS: TROPONIN I < 0.015 ng/ml (<0.045)
[2021-03-16 16:33] LABS: BILIRUBIN Negative (Negative); BLOOD Negative (Negative); CLARITY Clear (Clear); COLOR Yellow (Yellow); GLUCOSE Negative (Negative); KETONE Negative (Negative); LEUKO ESTERASE Negative (Negative); NITRITE Negative (Negative); PH 7.5 (4.5-8.0); SPECIFIC GRAVITY 1.015 (1.001-1.030); UROBILINOGEN 0.2 E.U./dl (0.0-1.0)
[2021-03-16 16:43] LABS: BACTERIA TRACE; RBC 0-2 rbc/hpf (0-2); WBC 0-2 wbc/hpf (0-5)
== END 2021-03-16 17:19 | disposition home or self-care (01) ==
LOC: ED 12:21
PROVIDERS: Emergency Medicine
DX: R10.30 Lower abdominal pain, unspecified (principal); M54.9 Dorsalgia, unspecified; R19.7 Diarrhea, unspecified; Z88.8 Allergy status to other drugs, medicaments and biological substances; Z79.899 Other long term (current) drug therapy; Z87.891 Personal history of nicotine dependence